=== PATIENT | male | born 1980 | race Asian ===

== ENCOUNTER 2020-05-14 12:49 | Emergency (ER) | payer OTHER, SELFPAY ==
[~2020-05-14] VITALS: Ht 167.6 cm; Wt 90.7 kg
[2020-05-14 13:00] VITALS: BP_SYST 146
--- NOTE | 2020-05-14 13:15 | NUR ---
Pt triaged and placed in tent
--- NOTE | 2020-05-14 13:20 | NUR ---
Pt walked in to ER with c/o SOB and cough, reports testing positive for Covid and having increasing SOB. V/S stable, 02 sat 98% on RA. Pt is afebrile. No distress noted.
--- NOTE | 2020-05-14 13:30 | NUR ---
DR. VARMA EXAMINING PT IN TENT
--- NOTE | 2020-05-14 13:40 | NUR ---
Patient transported to radiology via wheelchair, accompanied by staff.
[2020-05-14 14:31] VITALS: BP_SYST 146
--- NOTE | 2020-05-14 14:33 | NUR ---
Patient given written and verbal discharge instructions and verbalizes understanding. ER MD discussed with patient the results and treatment provided. Patient in stable condition. ID arm band removed. Rx of Zithromax, Albuterol and Hydroxychloroquine given. Patient educated on pain management and to follow up with PMD. Pain Scale 0. Opportunity for questions provided and answered. Medication side effect fact sheet provided.
== END 2020-05-14 14:31 | disposition home or self-care (01) ==
LOC: SED 12:49
DX: U07.1 COVID-19 (principal); I10 Essential (primary) hypertension; E11.9 Type 2 diabetes mellitus without complications
CPT/HCPCS: 71045; 99283

== ENCOUNTER 2020-05-31 08:46 | Outpatient (CLI) | payer OTHER, SELFPAY ==
[2020-05-31 09:13] LABS: BASOPHILS % (AUTO) 0.7 % (0.0-2.0); EOSINOPHILS # (AUTO) 0.2 K/uL (0.0-0.4); EOSINOPHILS % (AUTO) 3.2 % (0.0-4.0); HEMATOCRIT 44.2 % (36-54); HEMOGLOBIN 15.2 g/dL (14.0-18.0); LYMPHOCYTES % (AUTO) 42.1 % (20.5-51.5); MEAN CORPUSCULAR HEMOGLOBIN 30 pg (27-31); MEAN CORPUSCULAR HGB CONC 34 % (32-36); MEAN CORPUSCULAR VOLUME 87 fL (79.0-98.0); MONOCYTES # (AUTO) 0.5 K/uL (0.0-1.0); NEUTROPHILS # (AUTO) 2.1 K/uL (1.8-7.7); PLATELET COUNT (AUTO) 282 K/uL (130-430); RED BLOOD CELL COUNT(AUTO) 5.06 MIL/uL (4.2-6.2); RED CELL DISTRIBUTION WIDTH 12.9 % (9.0-15.0); WHITE BLOOD COUNT (AUTO) 4.8 K/uL (4.8-10.8)
[2020-05-31 09:34] LABS: ALBUMIN 3.2 g/dL (3.4-4.8); CALCIUM 8.7 mg/dL (8.4-11.0); CREATININE 0.83 mg/dL (0.55-1.30); FREE T4 (FREE THYROXINE) 1.1 ng/dl (0.8-1.5); POTASSIUM 3.9 mmol/L (3.5-5.1); THYROID STIMULATING HORMONE 2.66 uIu/mL (0.36-3.74); TOTAL BILIRUBIN 0.5 mg/dL (0.0-1.0)
[2020-05-31 09:39] LABS: BILIRUBIN,URINE NEGATIVE (NEGATIVE); BLOOD, URINE NEGATIVE (NEGATIVE); CLARITY/URINE CLEAR (CLEAR); COLOR,URINE YELLOW (YELLOW); GLUCOSE,URINE 2+ (NEGATIVE); KETONES,URINE NEGATIVE (NEGATIVE); LEUKOCYTE ESTERASE ,URINE NEGATIVE (NEGATIVE); NITRITE, URINE POSITIVE (NEGATIVE); PROTEIN URINE NEGATIVE (NEGATIVE); UROBILINOGEN,URINE 0.2 (0.2-1.0)
[2020-05-31 10:02] LABS: BACTERIA,URINE RARE /HPF (None Seen); RBC,URINE 0-3 /HPF (0-3); WBC,URINE NONE SEEN /HPF (0-3)
== END 2020-05-31 21:02 | disposition home or self-care (01) ==
LOC: SLB 08:46
PROVIDERS: ATTEND Family Medicine
DX: Z00.00 Encounter for general adult medical examination without abnormal findings (principal)
CPT/HCPCS: 36415; 80053; 80061; 81000-TC; 83036; 84439; 84443-TC; 85025

== ENCOUNTER 2020-08-18 10:13 | Outpatient (CLI) | payer OTHER ==
[2020-08-18 11:02] LABS: ALBUMIN 3.6 g/dL (3.4-4.8); BILIRUBIN,DIRECT 0.1 mg/dL (0.0-0.3); TOTAL BILIRUBIN 0.4 mg/dL (0.0-1.0)
== END 2020-08-18 20:50 | disposition home or self-care (01) ==
LOC: SLB 10:13
PROVIDERS: ATTEND Family Medicine
DX: E78.00 Pure hypercholesterolemia, unspecified (principal)
CPT/HCPCS: 36415; 80061; 80076

== ENCOUNTER 2020-11-25 08:22 | Outpatient (CLI) | payer OTHER ==
[2020-11-25 08:40] LABS: BILIRUBIN,URINE NEGATIVE (NEGATIVE); BLOOD, URINE NEGATIVE (NEGATIVE); CLARITY/URINE CLEAR (CLEAR); COLOR,URINE YELLOW (YELLOW); GLUCOSE,URINE 3+ (NEGATIVE); KETONES,URINE NEGATIVE (NEGATIVE); LEUKOCYTE ESTERASE ,URINE NEGATIVE (NEGATIVE); NITRITE, URINE NEGATIVE (NEGATIVE); PROTEIN URINE NEGATIVE (NEGATIVE); UROBILINOGEN,URINE 0.2 (0.2-1.0)
[2020-11-25 09:15] LABS: ALBUMIN 3.4 g/dL (3.4-4.8); CALCIUM 8.7 mg/dL (8.4-11.0); CREATININE 1.06 mg/dL (0.55-1.30); POTASSIUM 4.7 mmol/L (3.5-5.1); TOTAL BILIRUBIN 0.6 mg/dL (0.0-1.0)
[2020-11-25 10:28] LABS: BACTERIA,URINE RARE /HPF (None Seen); RBC,URINE NONE SEEN /HPF (0-3); WBC,URINE 0-3 /HPF (0-3)
== END 2020-11-25 21:00 | disposition home or self-care (01) ==
LOC: SLB 08:22
PROVIDERS: ATTEND Family Medicine
DX: E11.9 Type 2 diabetes mellitus without complications (principal)
CPT/HCPCS: 36415; 80053; 80061; 81000; 82043; 82570; 83036

== ENCOUNTER 2020-12-27 10:22 | Outpatient (CLI) | payer OTHER ==
[2020-12-27 11:29] LABS: CHOLESTEROL 131 mg/dL (<200); HDL CHOLESTEROL 43 mg/dL (>45); LDL CHOLESTEROL 70 mg/dL (<100); TRIGLYCERIDES 216 mg/dL (30-150)
== END 2020-12-27 21:10 | disposition home or self-care (01) ==
LOC: SLB 10:22
PROVIDERS: ATTEND Family Medicine
DX: E78.00 Pure hypercholesterolemia, unspecified (principal)
CPT/HCPCS: 36415; 80061

== ENCOUNTER 2021-03-28 08:53 | Outpatient (CLI) | payer OTHER ==
[2021-03-28 09:30] LABS: BASOPHILS % (AUTO) 0.3 % (0.0-2.0); EOSINOPHILS # (AUTO) 0.1 K/uL (0.0-0.4); EOSINOPHILS % (AUTO) 0.5 % (0.0-4.0); HEMATOCRIT 46.4 % (36-54); HEMOGLOBIN 15.3 g/dL (14.0-18.0); LYMPHOCYTES # (AUTO) 1.8 K/uL (1.0-5.5); LYMPHOCYTES % (AUTO) 14.2 % (20.5-51.5); MEAN CORPUSCULAR HEMOGLOBIN 29 pg (27-31); MEAN CORPUSCULAR HGB CONC 33 % (32-36); MEAN CORPUSCULAR VOLUME 88 fL (79.0-98.0); MONOCYTES # (AUTO) 1.7 K/uL (0.0-1.0); MONOCYTES % (AUTO) 13.6 % (1.7-9.3); NEUTROPHILS % (AUTO) 71.4 % (40.0-70.0); PLATELET COUNT (AUTO) 354 K/uL (130-430); RED BLOOD CELL COUNT(AUTO) 5.28 MIL/uL (4.2-6.2); RED CELL DISTRIBUTION WIDTH 12.9 % (9.0-15.0); WHITE BLOOD COUNT (AUTO) 12.6 K/uL (4.8-10.8)
[2021-03-28 09:39] LABS: HDL CHOLESTEROL 52 mg/dL (>45); LDL CHOLESTEROL 59 mg/dL (<100); TRIGLYCERIDES 113 mg/dL (30-150)
[2021-03-28 10:08] LABS: CHOLESTEROL 126 mg/dL (<200)
[2021-03-28 10:16] LABS: BILIRUBIN,URINE 1+ (NEGATIVE); BLOOD, URINE 1+ (NEGATIVE); CLARITY/URINE CLEAR (CLEAR); COLOR,URINE YELLOW (YELLOW); GLUCOSE,URINE 2+ (NEGATIVE); KETONES,URINE 3+ (NEGATIVE); LEUKOCYTE ESTERASE ,URINE NEGATIVE (NEGATIVE); NITRITE, URINE NEGATIVE (NEGATIVE); PH,URINE 5.5 (5.0-8.0); PROTEIN URINE 1+ (NEGATIVE); UROBILINOGEN,URINE 0.2 (0.2-1.0)
[2021-03-28 13:48] LABS: BACTERIA,URINE FEW /HPF (None Seen); RBC,URINE 0-3 /HPF (0-3); WBC,URINE 0-3 /HPF (0-3)
== END 2021-03-28 20:00 | disposition home or self-care (01) ==
LOC: SLB 08:53
PROVIDERS: ATTEND Family Medicine
DX: E11.9 Type 2 diabetes mellitus without complications (principal)
CPT/HCPCS: 36415; 80061; 81000; 82043; 82570; 83036; 85025

== ENCOUNTER 2021-05-01 07:09 | Outpatient (CLI) | payer OTHER | END 2021-05-01 20:16 | disposition home or self-care (01) | LOC: SLB 07:09 | PROVIDERS: ATTEND Family Medicine | DX: E11.9 Type 2 diabetes mellitus without complications (principal) | CPT/HCPCS: 36415; 83036 ==

== ENCOUNTER 2021-06-28 10:21 | Outpatient (CLI) | payer OTHER ==
[2021-06-28 11:53] LABS: ALBUMIN 3.7 g/dL (3.4-4.8); CALCIUM 8.2 mg/dL (8.4-11.0); CREATININE 0.84 mg/dL (0.55-1.30); POTASSIUM 4.5 mmol/L (3.5-5.1); TOTAL BILIRUBIN 0.5 mg/dL (0.0-1.0)
[2021-06-28 12:00] LABS: BILIRUBIN,URINE NEGATIVE (NEGATIVE); BLOOD, URINE NEGATIVE (NEGATIVE); CLARITY/URINE CLEAR (CLEAR); COLOR,URINE YELLOW (YELLOW); GLUCOSE,URINE 3+ (NEGATIVE); KETONES,URINE NEGATIVE (NEGATIVE); LEUKOCYTE ESTERASE ,URINE NEGATIVE (NEGATIVE); NITRITE, URINE NEGATIVE (NEGATIVE); PROTEIN URINE NEGATIVE (NEGATIVE); UROBILINOGEN,URINE 0.2 (0.2-1.0)
[2021-06-28 12:21] LABS: BACTERIA,URINE RARE /HPF (None Seen); RBC,URINE NONE SEEN /HPF (0-3); WBC,URINE 0-3 /HPF (0-3)
== END 2021-06-28 19:14 | disposition home or self-care (01) ==
LOC: SLB 10:21
PROVIDERS: ATTEND Family Medicine
DX: E11.9 Type 2 diabetes mellitus without complications (principal)
CPT/HCPCS: 36415; 80053; 80061; 81000; 82043; 82570; 83036

== ENCOUNTER 2021-08-08 09:39 | Outpatient (CLI) | payer OTHER | END 2021-08-08 18:54 | disposition home or self-care (01) | LOC: SRD 09:39 | PROVIDERS: ATTEND Family Medicine | DX: S93.402A Sprain of unspecified ligament of left ankle, initial encounter (principal); M81.0 Age-related osteoporosis without current pathological fracture; M77.32 Calcaneal spur, left foot; I70.90 Unspecified atherosclerosis; X58.XXXA Exposure to other specified factors, initial encounter; Y93.89 Activity, other specified; Y92.89 Other specified places as the place of occurrence of the external cause; Y99.8 Other external cause status ==

== ENCOUNTER 2021-10-31 10:30 | Outpatient (CLI) | payer OTHER ==
[2021-10-31 11:11] LABS: ALBUMIN 3.6 g/dL (3.4-4.8); CALCIUM 8.6 mg/dL (8.4-11.0); CREATININE 0.99 mg/dL (0.55-1.30); POTASSIUM 4.4 mmol/L (3.5-5.1); TOTAL BILIRUBIN 0.6 mg/dL (0.0-1.0)
[2021-10-31 11:47] LABS: BILIRUBIN,URINE NEGATIVE (NEGATIVE); BLOOD, URINE NEGATIVE (NEGATIVE); CLARITY/URINE CLEAR (CLEAR); COLOR,URINE YELLOW (YELLOW); GLUCOSE,URINE 3+ (NEGATIVE); KETONES,URINE NEGATIVE (NEGATIVE); LEUKOCYTE ESTERASE ,URINE NEGATIVE (NEGATIVE); NITRITE, URINE NEGATIVE (NEGATIVE); PROTEIN URINE NEGATIVE (NEGATIVE); UROBILINOGEN,URINE 0.2 (0.2-1.0)
== END 2021-10-31 20:37 | disposition home or self-care (01) ==
LOC: SLB 10:30
PROVIDERS: ATTEND Family Medicine
DX: E11.9 Type 2 diabetes mellitus without complications (principal)
CPT/HCPCS: 36415; 80053; 80061; 81003; 82043; 82570; 83036

== ENCOUNTER 2022-02-06 10:11 | Outpatient (CLI) | payer OTHER ==
[2022-02-06 11:08] LABS: BILIRUBIN,URINE NEGATIVE (NEGATIVE); CLARITY/URINE CLEAR (CLEAR); COLOR,URINE YELLOW (YELLOW); GLUCOSE,URINE 3+ (NEGATIVE); KETONES,URINE TRACE (NEGATIVE); LEUKOCYTE ESTERASE ,URINE NEGATIVE (NEGATIVE); NITRITE, URINE NEGATIVE (NEGATIVE); PROTEIN URINE NEGATIVE (NEGATIVE); UROBILINOGEN,URINE 0.2 (0.2-1.0)
[2022-02-06 11:12] LABS: BLOOD, URINE TRACE (NEGATIVE)
[2022-02-06 11:24] LABS: ALBUMIN 3.4 g/dL (3.4-4.8); CALCIUM 8.7 mg/dL (8.4-11.0); CREATININE 1.17 mg/dL (0.55-1.30); POTASSIUM 4.7 mmol/L (3.5-5.1); TOTAL BILIRUBIN 0.6 mg/dL (0.0-1.0)
[2022-02-06 11:37] LABS: BACTERIA,URINE None Seen /HPF (None Seen); RBC,URINE 0-3 /HPF (0-3); WBC,URINE 0-3 /HPF (0-3)
[2022-02-09 14:06] LABS: ALDOSTERONE 10.8 ng/dL (0.0-30.0)
[2022-02-12 09:07] LABS: HEMOGLOBIN A1C 10.6 % (4.8-5.6)
[2022-02-20 11:39] LABS: CREATININE, URINE 58.4 mg/dL
[2022-02-20 11:40] LABS: MICROALBUMIN URINE RANDOM 25.8 ug/ml (NOT ESTABLISHED)
== END 2022-02-06 19:21 | disposition home or self-care (01) ==
LOC: SRD 10:11
PROVIDERS: ATTEND Family Medicine
DX: M21.962 Unspecified acquired deformity of left lower leg (principal); M79.672 Pain in left foot; M25.572 Pain in left ankle and joints of left foot; E11.9 Type 2 diabetes mellitus without complications; I70.90 Unspecified atherosclerosis
CPT/HCPCS: 36415; 80053; 80061; 81000; 82043; 82088; 82306; 82570; 83036

== ENCOUNTER 2022-04-25 10:08 | Outpatient (CLI) | payer OTHER | END 2022-04-25 18:25 | disposition home or self-care (01) | LOC: SCT 10:08 | PROVIDERS: ATTEND Family Medicine | DX: M19.072 Primary osteoarthritis, left ankle and foot (principal); M72.2 Plantar fascial fibromatosis; M77.32 Calcaneal spur, left foot; E11.69 Type 2 diabetes mellitus with other specified complication; M31.8 Other specified necrotizing vasculopathies; M79.672 Pain in left foot; M21.6X2 Other acquired deformities of left foot | CPT/HCPCS: 73700-TC; 76376 ==

== ENCOUNTER 2023-03-03 20:29 | Inpatient (IN) | payer OTHER ==
[~2023-03-03] VITALS: Ht 170.2 cm; Wt 86.2 kg
[~2023-03-03 20:29] MED LIST: ATOR10TA68 PO; DILT-118 PO; DILT-33 PO; EMPA25TA PO; HYDR-3917 PO; ICOS1CAP2 PO; INSU100V9 SUBCUT; LOSA100T24 PO; METF-380 PO; METO-542 PO; SEMA0.258 SUBCUT; SULF1TAB48 PO
[2023-03-03 21:03] VITALS: BP_SYST 133; PULSE 82; RESP 18; TEMP 98.3; O2SAT 99
[2023-03-03] MEDS ORDERED: NAFCILLIN SODIUM ONE (21:34)
[2023-03-03] MEDS ORDERED: MAGNESIUM SULFATE 50 ML IV PRN (21:45)
[2023-03-03] MEDS ORDERED: DOCUSATE SODIUM 100 MG CAPSULE PO PRN (21:45)
[2023-03-03] MEDS ORDERED: MORPHINE 2 MG/ML INJ. SYRINGE IVP PRN ×2 (21:45)
[2023-03-03] MEDS ORDERED: MUPIROCIN 2% TOPICAL OINTMENT 22 GM NS PRN (21:45)
[2023-03-03] MEDS ORDERED: LORazepam 2 MG/ML VIAL IVP PRN (21:45)
[2023-03-03] MEDS ORDERED: D5NS 1,000 ML IV SCH (21:45)
[2023-03-03] MEDS ORDERED: DEXTROSE 50% JECT 50 ML DISP.SYRIN IVP PRN (21:45)
[2023-03-03] MEDS ORDERED: ACETAMINOPHEN 325 MG TABLET PO PRN (21:45)
[2023-03-03] MEDS ORDERED: ZOLPIDEM TARTRATE 5 MG TABLET PO PRN (21:45)
[2023-03-03] MEDS ORDERED: POTASSIUM CHLORIDE 20 MEQ TAB.PRT.SR PO PRN (21:45)
[2023-03-03] MEDS ORDERED: ONDANSETRON HCL 4 MG/2 ML VIAL IVP PRN (21:45)
[2023-03-03 21:55] LABS: BASOPHILS # (AUTO) 0.1 K/uL (0.0-0.2); BASOPHILS % (AUTO) 0.6 % (0.0-2.0); EOSINOPHILS # (AUTO) 0.3 K/uL (0.0-0.4); EOSINOPHILS % (AUTO) 3.3 % (0.0-4.0); HEMATOCRIT 36.2 % (36-54); HEMOGLOBIN 11.7 g/dL (14.0-18.0); LYMPHOCYTES # (AUTO) 2.8 K/uL (1.0-5.5); LYMPHOCYTES % (AUTO) 26.9 % (20.5-51.5); MEAN CORPUSCULAR HEMOGLOBIN 28 pg (27-31); MEAN CORPUSCULAR HGB CONC 32 % (32-36); MEAN CORPUSCULAR VOLUME 87 fL (79.0-98.0); MONOCYTES # (AUTO) 0.7 K/uL (0.0-1.0); NEUTROPHILS # (AUTO) 6.5 K/uL (1.8-7.7); NEUTROPHILS % (AUTO) 62.2 % (40.0-70.0); PLATELET COUNT (AUTO) 540 K/uL (130-430); RED BLOOD CELL COUNT(AUTO) 4.17 MIL/uL (4.2-6.2); RED CELL DISTRIBUTION WIDTH 14.9 % (9.0-15.0); WHITE BLOOD COUNT (AUTO) 10.4 K/uL (4.8-10.8)
[2023-03-03 21:58] LABS: ERYTHROCYTE SEDIMENTATION RATE 72 MM/HR (0-15)
[2023-03-03 22:05] LABS: CALCIUM 9.3 mg/dL (8.4-11.0); CREATININE 1.08 mg/dL (0.55-1.30); POTASSIUM 4.1 mmol/L (3.5-5.1)
[2023-03-03 22:08] LABS: PROTHROMBIN TIME 10.1 SECS (9.5-12.5)
[2023-03-03] MEDS: NAFCILLIN SODIUM 1 GM in NS 50 ML IV SCH (22:18)
[2023-03-03 22:40] LABS: ALBUMIN 2.6 g/dL (3.4-4.8); TOTAL BILIRUBIN 0.2 mg/dL (0.0-1.0); TOTAL PROTEIN, SERUM 8.2 g/dL (6.4-8.3)
[2023-03-03 23:15] VITALS: BP_SYST 124; PULSE 82; RESP 16; TEMP 98.2; O2SAT 96
[2023-03-04] MEDS ORDERED: PIPERACILLIN/TAZOBACTAM 3.375 GM/VIAL (ZOSYN) IV ONE (01:21)
[2023-03-04] MEDS ORDERED: NAFCILLIN SODIUM ONE (01:21)
[2023-03-04] MEDS: PIPERACILLIN/TAZO 3.375 GM in NS 50 ML IV SCH ×4 (01:30→17:31)
[2023-03-04 01:55] LABS: BILIRUBIN,URINE NEGATIVE (NEGATIVE); BLOOD, URINE NEGATIVE (NEGATIVE); CLARITY/URINE CLEAR (CLEAR); COLOR,URINE YELLOW (YELLOW); GLUCOSE,URINE 3+ (NEGATIVE); KETONES,URINE NEGATIVE (NEGATIVE); LEUKOCYTE ESTERASE ,URINE NEGATIVE (NEGATIVE); NITRITE, URINE NEGATIVE (NEGATIVE); PH,URINE 6.5 (5.0-8.0); PROTEIN URINE NEGATIVE (NEGATIVE); UROBILINOGEN,URINE 0.2 (0.2-1.0)
[2023-03-04 05:04] LABS: EOSINOPHILS # (AUTO) 0.3 K/uL (0.0-0.4); EOSINOPHILS % (AUTO) 3.3 % (0.0-4.0); HEMATOCRIT 33.7 % (36-54); LYMPHOCYTES # (AUTO) 2.2 K/uL (1.0-5.5); LYMPHOCYTES % (AUTO) 26.3 % (20.5-51.5); MEAN CORPUSCULAR HEMOGLOBIN 28 pg (27-31); MEAN CORPUSCULAR HGB CONC 33 % (32-36); MEAN CORPUSCULAR VOLUME 87 fL (79.0-98.0); MONOCYTES # (AUTO) 0.5 K/uL (0.0-1.0); MONOCYTES % (AUTO) 5.6 % (1.7-9.3); NEUTROPHILS # (AUTO) 5.4 K/uL (1.8-7.7); NEUTROPHILS % (AUTO) 64.8 % (40.0-70.0); PLATELET COUNT (AUTO) 481 K/uL (130-430); RED BLOOD CELL COUNT(AUTO) 3.88 MIL/uL (4.2-6.2); RED CELL DISTRIBUTION WIDTH 14.9 % (9.0-15.0); WHITE BLOOD COUNT (AUTO) 8.4 K/uL (4.8-10.8)
[2023-03-04] MEDS: NAFCILLIN SODIUM 1 GM in NS 50 ML IV SCH ×3 (05:19)
[2023-03-04 05:33] LABS: CALCIUM 8.9 mg/dL (8.4-11.0); CREATININE 0.9 mg/dL (0.55-1.30); POTASSIUM 3.9 mmol/L (3.5-5.1)
[2023-03-04 08:00] VITALS: BP_SYST 135; PULSE 72; RESP 18; TEMP 97.9; O2SAT 96
[2023-03-04] MEDS: LOSARTAN POTASSIUM 50 MG TABLET (COZAAR) PO SCH (09:00)
[2023-03-04] MEDS: ATORVASTATIN 10 MG TABLET PO SCH (09:00)
[2023-03-04] MEDS ORDERED: fentaNYL CITRATE/PF 100 MCG/2 ML AMP ONE (09:55)
[2023-03-04] MEDS ORDERED: SEVOFLURANE 15 MIN GAS INH ONE (09:55)
[2023-03-04] MEDS ORDERED: PROPOFOL 200MG/ 20ML VIAL (DIPRIVAN) IV ONE (09:55)
[2023-03-04] MEDS ORDERED: MIDAZOLAM HCL/PF 2 MG/2 ML SYRINGE ONE (09:55)
[2023-03-04] MEDS ORDERED: ONDANSETRON HCL 4 MG/2 ML VIAL ONE (09:55)
[2023-03-04] MEDS ORDERED: KETOROLAC TROMETHAMINE 30 MG VIAL ONE (09:55)
[2023-03-04] MEDS ORDERED: DEXAMETHASONE SOD PHOSPHATE 4 MG/ML VIAL ONE (09:55)
[2023-03-04] MEDS ORDERED: BUPIVACAINE /PF 0.25% 30 ML VIAL INJ ONE (09:55)
[2023-03-04] MEDS ORDERED: LIDOCAINE JECT 2% PF 100 MG/5ML SYRINGE ONE (09:55)
[2023-03-04] MEDS ORDERED: LR 1,000 ML IV.SOLN IV ONE (09:55)
[2023-03-04] MEDS ORDERED: HYDROmorphone 1 MG/ML INJ. CARTRIDGE IVP PRN ×2 (10:30)
[2023-03-04] MEDS ORDERED: MEPERIDINE HCL/PF 25 MG/ML DISP.SYRIN IVP PRN (10:30)
[2023-03-04] MEDS ORDERED: LR 1,000 ML IV SCH (10:30)
[2023-03-04] MEDS ORDERED: METOCLOPRAMIDE HCL 10 MG/2 ML VIAL IVP PRN (10:30)
[2023-03-04 10:36] VITALS: BP_SYST 124; PULSE 82; O2SAT 99
[2023-03-04] MEDS: INSULIN LISPRO SLIDING SCALE 100 UNITS/ML, 3 ML VIAL (humaLOG) SUBCUT PRN ×2 (17:28→20:32)
[2023-03-04 18:10] VITALS: BP_SYST 129; PULSE 98; RESP 17; TEMP 98.5; O2SAT 97
[2023-03-04 20:00] VITALS: BP_SYST 133; PULSE 111; RESP 20; TEMP 97.9; O2SAT 95
[2023-03-04] MEDS: LINEZOLID 300 ML IV SCH (20:28)
[2023-03-05 00:53] VITALS: BP_SYST 143; PULSE 104; RESP 18; TEMP 96.4; O2SAT 97
[2023-03-05] MEDS: PIPERACILLIN/TAZO 3.375 GM in NS 50 ML IV SCH ×3 (02:16→18:09)
[2023-03-05 04:54] LABS: BASOPHILS % (AUTO) 0.3 % (0.0-2.0); HEMOGLOBIN 10.8 g/dL (14.0-18.0); LYMPHOCYTES # (AUTO) 1.2 K/uL (1.0-5.5); LYMPHOCYTES % (AUTO) 13.4 % (20.5-51.5); MEAN CORPUSCULAR HEMOGLOBIN 28 pg (27-31); MEAN CORPUSCULAR HGB CONC 33 % (32-36); MEAN CORPUSCULAR VOLUME 86 fL (79.0-98.0); MONOCYTES # (AUTO) 0.4 K/uL (0.0-1.0); MONOCYTES % (AUTO) 4.8 % (1.7-9.3); NEUTROPHILS # (AUTO) 7.3 K/uL (1.8-7.7); NEUTROPHILS % (AUTO) 81.5 % (40.0-70.0); PLATELET COUNT (AUTO) 546 K/uL (130-430); RED BLOOD CELL COUNT(AUTO) 3.84 MIL/uL (4.2-6.2); RED CELL DISTRIBUTION WIDTH 15.1 % (9.0-15.0)
[2023-03-05 05:13] LABS: CALCIUM 8.9 mg/dL (8.4-11.0); CREATININE 0.88 mg/dL (0.55-1.30)
[2023-03-05 08:04] VITALS: BP_SYST 137; PULSE 106; RESP 16; TEMP 98.2; O2SAT 100
[2023-03-05] MEDS: LINEZOLID 300 ML IV SCH ×2 (08:19→21:57)
[2023-03-05] MEDS: ATORVASTATIN 10 MG TABLET PO SCH (08:20)
[2023-03-05] MEDS: LOSARTAN POTASSIUM 50 MG TABLET (COZAAR) PO SCH (08:20)
[2023-03-05 10:00] VITALS: O2SAT 100
[2023-03-05] MEDS: NACL 0.9% 1,000 ML IV SCH ×2 (10:30→21:56)
[2023-03-05 11:29] VITALS: BP_SYST 145; PULSE 98; RESP 16; TEMP 96.2; O2SAT 97
[2023-03-05 15:25] VITALS: BP_SYST 163; PULSE 93; RESP 16; TEMP 97; O2SAT 99
[2023-03-05] MEDS ORDERED: HYDROCHLOROTHIAZIDE 25 MG TABLET (HCTZ) PO ONE (15:45)
[2023-03-05 20:00] VITALS: BP_SYST 163; PULSE 100; RESP 16; TEMP 97.8; O2SAT 98
[2023-03-05] MEDS ORDERED: cloNIDine HCL 0.2 MG TABLET PO PRN (21:45)
[2023-03-05] MEDS: INSULIN LISPRO SLIDING SCALE 100 UNITS/ML, 3 ML VIAL (humaLOG) SUBCUT PRN (22:01)
[2023-03-06 00:46] VITALS: BP_SYST 148; PULSE 91; RESP 17; TEMP 96.6; O2SAT 98
[2023-03-06] MEDS: PIPERACILLIN/TAZO 3.375 GM in NS 50 ML IV SCH ×3 (02:09→18:47)
[2023-03-06 05:39] LABS: BASOPHILS % (AUTO) 0.5 % (0.0-2.0); EOSINOPHILS # (AUTO) 0.2 K/uL (0.0-0.4); EOSINOPHILS % (AUTO) 1.7 % (0.0-4.0); HEMATOCRIT 33.2 % (36-54); HEMOGLOBIN 10.7 g/dL (14.0-18.0); LYMPHOCYTES # (AUTO) 2.6 K/uL (1.0-5.5); LYMPHOCYTES % (AUTO) 26.8 % (20.5-51.5); MEAN CORPUSCULAR HEMOGLOBIN 28 pg (27-31); MEAN CORPUSCULAR HGB CONC 32 % (32-36); MEAN CORPUSCULAR VOLUME 87 fL (79.0-98.0); MONOCYTES # (AUTO) 0.9 K/uL (0.0-1.0); MONOCYTES % (AUTO) 8.9 % (1.7-9.3); NEUTROPHILS # (AUTO) 5.9 K/uL (1.8-7.7); NEUTROPHILS % (AUTO) 62.1 % (40.0-70.0); PLATELET COUNT (AUTO) 595 K/uL (130-430); RED BLOOD CELL COUNT(AUTO) 3.81 MIL/uL (4.2-6.2); RED CELL DISTRIBUTION WIDTH 14.9 % (9.0-15.0); WHITE BLOOD COUNT (AUTO) 9.5 K/uL (4.8-10.8)
[2023-03-06 05:57] LABS: CREATININE 0.85 mg/dL (0.55-1.30); POTASSIUM 4.3 mmol/L (3.5-5.1)
[2023-03-06 06:16] LABS: PROTHROMBIN TIME 10.4 SECS (9.5-12.5)
[2023-03-06 07:00] VITALS: BP_SYST 148; PULSE 101; RESP 16; TEMP 98.3; O2SAT 99
[2023-03-06 09:00] VITALS: BP_SYST 148; PULSE 101; RESP 16; TEMP 98.3; O2SAT 98
[2023-03-06] MEDS: ATORVASTATIN 10 MG TABLET PO SCH (09:04)
[2023-03-06] MEDS: HYDROCHLOROTHIAZIDE 25 MG TABLET (HCTZ) PO SCH (09:05)
[2023-03-06] MEDS: LOSARTAN POTASSIUM 50 MG TABLET (COZAAR) PO SCH (09:05)
[2023-03-06] MEDS: NACL 0.9% 1,000 ML IV SCH ×2 (09:12→22:00)
[2023-03-06] MEDS: LINEZOLID 300 ML IV SCH ×2 (09:29→22:17)
[2023-03-06 11:20] VITALS: BP_SYST 134; PULSE 104; RESP 15; TEMP 96.3; O2SAT 98
[2023-03-06 20:00] VITALS: BP_SYST 106; PULSE 100; RESP 18; TEMP 97.1; O2SAT 96
[2023-03-06 21:45] VITALS: O2SAT 100
[2023-03-07 00:38] VITALS: BP_SYST 146; PULSE 89; RESP 18; TEMP 97.2; O2SAT 98
[2023-03-07] MEDS: PIPERACILLIN/TAZO 3.375 GM in NS 50 ML IV SCH ×2 (01:27→11:16)
[2023-03-07 06:03] LABS: BASOPHILS # (AUTO) 0.1 K/uL (0.0-0.2); BASOPHILS % (AUTO) 0.7 % (0.0-2.0); EOSINOPHILS # (AUTO) 0.2 K/uL (0.0-0.4); EOSINOPHILS % (AUTO) 1.8 % (0.0-4.0); HEMATOCRIT 32.6 % (36-54); HEMOGLOBIN 10.6 g/dL (14.0-18.0); LYMPHOCYTES # (AUTO) 2.1 K/uL (1.0-5.5); LYMPHOCYTES % (AUTO) 24.3 % (20.5-51.5); MEAN CORPUSCULAR HEMOGLOBIN 28 pg (27-31); MEAN CORPUSCULAR HGB CONC 32 % (32-36); MEAN CORPUSCULAR VOLUME 87 fL (79.0-98.0); MONOCYTES # (AUTO) 0.9 K/uL (0.0-1.0); MONOCYTES % (AUTO) 10.7 % (1.7-9.3); NEUTROPHILS # (AUTO) 5.4 K/uL (1.8-7.7); NEUTROPHILS % (AUTO) 62.5 % (40.0-70.0); PLATELET COUNT (AUTO) 562 K/uL (130-430); RED BLOOD CELL COUNT(AUTO) 3.75 MIL/uL (4.2-6.2); RED CELL DISTRIBUTION WIDTH 14.7 % (9.0-15.0); WHITE BLOOD COUNT (AUTO) 8.7 K/uL (4.8-10.8)
[2023-03-07 06:33] LABS: CREATININE 0.91 mg/dL (0.55-1.30)
[2023-03-07 07:00] VITALS: BP_SYST 151; PULSE 100; RESP 16; TEMP 98.4; O2SAT 98
[2023-03-07 09:00] VITALS: BP_SYST 151; PULSE 100; RESP 16; TEMP 98.4; O2SAT 98
[2023-03-07] MEDS: LINEZOLID 300 ML IV SCH (09:14)
[2023-03-07] MEDS: LOSARTAN POTASSIUM 50 MG TABLET (COZAAR) PO SCH (09:24)
[2023-03-07] MEDS: HYDROCHLOROTHIAZIDE 25 MG TABLET (HCTZ) PO SCH (09:25)
[2023-03-07] MEDS: ATORVASTATIN 10 MG TABLET PO SCH (09:25)
[2023-03-07] MEDS ORDERED: HEPARIN IV FLUSH 300 UNITS/3ML SYR INJ ONE (10:15)
[2023-03-07] MEDS: NACL 0.9% 1,000 ML IV SCH (11:42)
[2023-03-07 11:50] VITALS: BP_SYST 118; PULSE 95; RESP 18; TEMP 97.5; O2SAT 99
[2023-03-07] MEDS ORDERED: COMMUNICATION ORDER XX ONE (15:45)
[2023-03-07 16:00] VITALS: BP_SYST 120; PULSE 90; RESP 20; TEMP 97; O2SAT 100
[2023-03-07] MEDS ORDERED: DAPTOmycin 500 MG in NS 50 ML IV SCH ×2 (18:00→21:00)
[2023-03-07] MEDS: INSULIN LISPRO SLIDING SCALE 100 UNITS/ML, 3 ML VIAL (humaLOG) SUBCUT PRN (20:58)
[2023-03-07 21:02] VITALS: BP_SYST 138; PULSE 98; RESP 18; TEMP 97.1; O2SAT 99
== END 2023-03-07 21:45 | disposition home health service (06) | DRG 475 ==
LOC: SED 20:29 → SMU 21:47
PROVIDERS: ADMIT General Practice; ATTEND General Practice
PROC: 0Y6H0Z1 Detachment at Right Lower Leg, High, Open Approach (ICD-10-PCS; principal; 2023-03-04 10:00)
DX: T87.43 Infection of amputation stump, right lower extremity (principal); E44.0 Moderate protein-calorie malnutrition; E87.1 Hypo-osmolality and hyponatremia; L03.115 Cellulitis of right lower limb; I10 Essential (primary) hypertension; E78.5 Hyperlipidemia, unspecified; Y83.5 Amputation of limb(s) as the cause of abnormal reaction of the patient, or of later complication, without mention of misadventure at the time of the procedure; Y92.89 Other specified places as the place of occurrence of the external cause; Z68.29 Body mass index [BMI] 29.0-29.9, adult
CPT/HCPCS: 36415; 71045; 73590-TC; 80048; 80053; 81001; 81003; 82962; 83037; 83605; 83735; 85025; 85610-TC; 85651-TC; 85730-TC; 87040; 87070-TC; 87075-TC; 87081; 87186-TC; 93005; 97110-GP; 97116-GP; 97530-GP; 99285; J0878; J1100; J1642; J1885; J2020; J2060; J2405; J2543; J2704; J3010; J3465; J3490; J7120

== ENCOUNTER 2023-03-12 19:39 | Inpatient (IN) | payer OTHER ==
[~2023-03-12] VITALS: Ht 170.2 cm; Wt 86.2 kg
[~2023-03-12 19:39] MED LIST changes: -SULF1TAB48 PO
[2023-03-12 20:01] VITALS: BP_SYST 135; PULSE 83; RESP 16; TEMP 97.9; O2SAT 98
[2023-03-12] MEDS ORDERED: HEPARIN IV FLUSH 300 UNITS/3ML SYR INJ ONE (20:30)
[2023-03-12 21:45] LABS: BASOPHILS # (AUTO) 0.1 K/uL (0.0-0.2); BASOPHILS % (AUTO) 0.7 % (0.0-2.0); EOSINOPHILS # (AUTO) 0.4 K/uL (0.0-0.4); EOSINOPHILS % (AUTO) 3.9 % (0.0-4.0); HEMATOCRIT 33.6 % (36-54); LYMPHOCYTES % (AUTO) 30.6 % (20.5-51.5); MEAN CORPUSCULAR HEMOGLOBIN 28 pg (27-31); MEAN CORPUSCULAR HGB CONC 33 % (32-36); MEAN CORPUSCULAR VOLUME 87 fL (79.0-98.0); MONOCYTES # (AUTO) 0.8 K/uL (0.0-1.0); NEUTROPHILS # (AUTO) 5.6 K/uL (1.8-7.7); NEUTROPHILS % (AUTO) 56.8 % (40.0-70.0); PLATELET COUNT (AUTO) 642 K/uL (130-430); RED BLOOD CELL COUNT(AUTO) 3.87 MIL/uL (4.2-6.2); RED CELL DISTRIBUTION WIDTH 15.8 % (9.0-15.0); WHITE BLOOD COUNT (AUTO) 9.9 K/uL (4.8-10.8)
[2023-03-12] MEDS ORDERED: ONDANSETRON HCL 4 MG/2 ML VIAL IVP PRN (21:45)
[2023-03-12] MEDS ORDERED: POTASSIUM CHLORIDE 20 MEQ TAB.PRT.SR PO PRN (21:45)
[2023-03-12] MEDS ORDERED: MUPIROCIN 2% TOPICAL OINTMENT 22 GM NS PRN (21:45)
[2023-03-12] MEDS ORDERED: LORazepam 2 MG/ML VIAL IVP PRN (21:45)
[2023-03-12] MEDS ORDERED: NALOXONE HCL 0.4 MG/ML AMP (NARCAN) IVP PRN ×2 (21:45)
[2023-03-12] MEDS ORDERED: MAGNESIUM SULFATE 50 ML IV PRN (21:45)
[2023-03-12] MEDS: NACL 0.9% 1,000 ML IV SCH (21:45)
[2023-03-12] MEDS ORDERED: ZOLPIDEM TARTRATE 5 MG TABLET PO PRN (21:45)
[2023-03-12] MEDS ORDERED: MORPHINE 2 MG/ML INJ. SYRINGE IVP PRN ×2 (21:45)
[2023-03-12] MEDS ORDERED: DOCUSATE SODIUM 100 MG CAPSULE PO PRN (21:45)
[2023-03-12] MEDS ORDERED: ACETAMINOPHEN 325 MG TABLET PO PRN (21:45)
[2023-03-12 21:56] LABS: CALCIUM 9.5 mg/dL (8.4-11.0); CREATININE 0.8 mg/dL (0.55-1.30); POTASSIUM 4.1 mmol/L (3.5-5.1); TOTAL BILIRUBIN 0.2 mg/dL (0.0-1.0); TOTAL PROTEIN, SERUM 7.8 g/dL (6.4-8.3)
[2023-03-12 23:11] VITALS: BP_SYST 124; PULSE 76; RESP 17; TEMP 97.8; O2SAT 99
[2023-03-13 00:43] VITALS: BP_SYST 111; PULSE 66; RESP 16; TEMP 97.4; O2SAT 96
[2023-03-13 04:22] LABS: BASOPHILS # (AUTO) 0.1 K/uL (0.0-0.2); EOSINOPHILS # (AUTO) 0.4 K/uL (0.0-0.4); EOSINOPHILS % (AUTO) 4.7 % (0.0-4.0); HEMATOCRIT 32.5 % (36-54); HEMOGLOBIN 10.6 g/dL (14.0-18.0); LYMPHOCYTES # (AUTO) 2.4 K/uL (1.0-5.5); LYMPHOCYTES % (AUTO) 32.1 % (20.5-51.5); MEAN CORPUSCULAR HEMOGLOBIN 28 pg (27-31); MEAN CORPUSCULAR HGB CONC 33 % (32-36); MEAN CORPUSCULAR VOLUME 87 fL (79.0-98.0); MONOCYTES # (AUTO) 0.8 K/uL (0.0-1.0); MONOCYTES % (AUTO) 9.9 % (1.7-9.3); NEUTROPHILS % (AUTO) 52.3 % (40.0-70.0); PLATELET COUNT (AUTO) 593 K/uL (130-430); RED BLOOD CELL COUNT(AUTO) 3.74 MIL/uL (4.2-6.2); WHITE BLOOD COUNT (AUTO) 7.6 K/uL (4.8-10.8)
[2023-03-13 04:26] LABS: HEMOGLOBIN A1C 6.06 % (<5.7)
[2023-03-13 04:35] LABS: CALCIUM 9.3 mg/dL (8.4-11.0); CREATININE 0.83 mg/dL (0.55-1.30); POTASSIUM 4.2 mmol/L (3.5-5.1)
[2023-03-13] MEDS ORDERED: DILTIAZEM HCL 180 MG CAP.SR.24H PO SCH (09:00)
[2023-03-13] MEDS ORDERED: COMMUNICATION ORDER XX ONE (09:00)
[2023-03-13] MEDS ORDERED: METOPROLOL SUCCINATE 50 MG TAB.SR.24H (TOPROL XL) PO SCH (09:00)
[2023-03-13] MEDS ORDERED: HEPARIN SODIUM,PORCINE 5,000 UNITS/ML VIAL SUBCUT SCH (09:00)
[2023-03-13] MEDS ORDERED: ATORVASTATIN 10 MG TABLET PO SCH (09:00)
[2023-03-13] MEDS ORDERED: LOSARTAN POTASSIUM 50 MG TABLET (COZAAR) PO SCH (09:00)
[2023-03-13] MEDS: NACL 0.9% 1,000 ML IV SCH (09:32)
[2023-03-13] MEDS ORDERED: DAPTOmycin 500 MG in NS 50 ML IV SCH (10:00)
[2023-03-13 11:27] VITALS: BP_SYST 144; PULSE 79; RESP 20; TEMP 98.1; O2SAT 99
[2023-03-13 15:28] VITALS: O2SAT 96
[2023-03-13 15:39] VITALS: BP_SYST 136; PULSE 86; RESP 20; TEMP 97.4; O2SAT 98
[2023-03-13 15:59] VITALS: BP_SYST 136; PULSE 86; RESP 20; TEMP 97.4; O2SAT 98
[2023-03-13] MEDS ORDERED: HEPARIN IV FLUSH 300 UNITS/3ML SYR INJ ONE (17:45)
[2023-03-13] MEDS ORDERED: INSULIN GLARGINE 100 UNITS/ML, 10 ML VIAL SUBCUT SCH (18:00)
== END 2023-03-13 17:45 | disposition home health service (06) | DRG 315 ==
LOC: SED 19:39 → SMU 21:19
PROVIDERS: ADMIT General Practice; ATTEND General Practice
DX: T80.211A Bloodstream infection due to central venous catheter, initial encounter (principal); T87.43 Infection of amputation stump, right lower extremity; I10 Essential (primary) hypertension; E11.9 Type 2 diabetes mellitus without complications; Y83.5 Amputation of limb(s) as the cause of abnormal reaction of the patient, or of later complication, without mention of misadventure at the time of the procedure; Y83.8 Other surgical procedures as the cause of abnormal reaction of the patient, or of later complication, without mention of misadventure at the time of the procedure; E78.5 Hyperlipidemia, unspecified; Z79.899 Other long term (current) drug therapy; Y92.89 Other specified places as the place of occurrence of the external cause
CPT/HCPCS: 36415; 80048; 80053; 83037; 83605; 83735; 85025; 87040; 87081; 99285; J0878; J1642; J1644

== ENCOUNTER 2023-07-25 07:15 | Outpatient (CLI) | payer OTHER | END 2023-07-25 21:03 | disposition home or self-care (01) | LOC: SMI 07:15 | PROVIDERS: ATTEND Orthopaedic Surgery Sports Medicine | DX: M17.11 Unilateral primary osteoarthritis, right knee (principal); M25.461 Effusion, right knee; M25.561 Pain in right knee; M89.8X6 Other specified disorders of bone, lower leg; M79.89 Other specified soft tissue disorders | CPT/HCPCS: 73720 ==

== ENCOUNTER 2024-01-28 08:11 | Inpatient (IN) | payer OTHER ==
[~2024-01-28] VITALS: Ht 170.2 cm; Wt 64.0 kg
[~2024-01-28 08:11] MED LIST changes: +METO-306 PO; -METO-542 PO
[2024-01-28 08:18] VITALS: BP_SYST 124; PULSE 94; RESP 26; TEMP 97; O2SAT 98
[2024-01-28 08:43] LABS: BASOPHILS % (AUTO) 0.4 % (0.0-2.0); EOSINOPHILS # (AUTO) 0.1 K/uL (0.0-0.4); EOSINOPHILS % (AUTO) 0.9 % (0.0-4.0); HEMATOCRIT 35.6 % (36-54); MEAN CORPUSCULAR HEMOGLOBIN 31 pg (27-31); MEAN CORPUSCULAR HGB CONC 34 % (32-36); MEAN CORPUSCULAR VOLUME 91 fL (79.0-98.0); MONOCYTES # (AUTO) 0.8 K/uL (0.0-1.0); MONOCYTES % (AUTO) 8.4 % (1.7-9.3); NEUTROPHILS # (AUTO) 6.6 K/uL (1.8-7.7); NEUTROPHILS % (AUTO) 69.3 % (40.0-70.0); PLATELET COUNT (AUTO) 476 K/uL (130-430); WHITE BLOOD COUNT (AUTO) 9.6 K/uL (4.8-10.8)
[2024-01-28 09:13] LABS: INFLUENZA TYPE A Negative (NEGATIVE); INFLUENZA TYPE B NEGATIVE (NEGATIVE)
[2024-01-28 09:15] LABS: ALANINE AMINOTRANSFERASE 24 U/L (12-78); ANION GAP 6 (5-15); ASPARTATE AMINOTRANSFERASE 12 U/L (10-37); CALCIUM 9.3 mg/dL (8.4-11.0); CARBON DIOXIDE 31 mmol/L (23-29); CHLORIDE 105 mmol/L (98-107); CREATININE 0.88 mg/dL (0.55-1.30); GFR AFRICAN AMERICAN 122 mL/min (>90); GFR NON AFRICAN-AMERICAN 100 mL/min (>90); GLUCOSE 169 mg/dL (74-106); POTASSIUM 4.8 mmol/L (3.5-5.1); SODIUM SERUM 142 mmol/L (136-145); TOTAL BILIRUBIN 0.3 mg/dL (0.0-1.0); TOTAL PROTEIN, SERUM 7.5 g/dL (6.4-8.3); UREA NITROGEN, BLOOD 18 mg/dL (8-21)
[2024-01-28 09:17] LABS: BILIRUBIN,DIRECT 0.1 mg/dL (0.0-0.3); SALICYLATE 1 mg/dL (3-30)
[2024-01-28 09:19] LABS: ACETAMINOPHEN < 1 ug/mL (1-30); ALCOHOL, BLOOD < 3 mg/dL (<10)
[2024-01-28 09:29] LABS: INR 0.9 (0.80-1.20); PROTHROMBIN TIME 10.2 SECS (9.5-12.5)
[2024-01-28] MEDS: NACL 0.9% 1,000 ML IV ONE (09:40)
[2024-01-28 12:25] LABS: BARBITURATE, URINE NEGATIVE (NEG <=200); BENZODIAZEPINE, URINE NEGATIVE (NEG <=150); CANNABINOID, URINE NEGATIVE (NEG <=50); COCAINE, URINE NEGATIVE (NEG <=150); METHAMPHETAMINES SCREEN,URINE NEGATIVE (NEG <=500); OPIATE, URINE NEGATIVE (NEG <=100); PHENCYCLIDINE SCREEN,URINE NEGATIVE (NEG <=25); UR TRICYCLIC ANTIDEPRESSANTS NEGATIVE (NEG <=300); URINE AMPHETAMINE NEGATIVE (NEG <=500); URINE METHADONE NEGATIVE (NEG <=200); URINE OXYCODONE SCREEN NEGATIVE (NEG <=100)
[2024-01-28 13:25] LABS: BILIRUBIN,URINE NEGATIVE (NEGATIVE); BLOOD, URINE NEGATIVE (NEGATIVE); CLARITY/URINE CLEAR (CLEAR); COLOR,URINE YELLOW (YELLOW); GLUCOSE,URINE 3+ (NEGATIVE); KETONES,URINE NEGATIVE (NEGATIVE); LEUKOCYTE ESTERASE ,URINE NEGATIVE (NEGATIVE); NITRITE, URINE NEGATIVE (NEGATIVE); PROTEIN URINE NEGATIVE (NEGATIVE); UROBILINOGEN,URINE 0.2 (0.2-1.0)
[2024-01-28 14:11] LABS: BACTERIA,URINE FEW /HPF (None Seen); RBC,URINE 0-3 /HPF (0-3); WBC,URINE 0-3 /HPF (0-3)
[2024-01-28 20:58] VITALS: BP_SYST 150; PULSE 79; RESP 18; TEMP 98
[2024-01-28 21:00] VITALS: BP_SYST 122; PULSE 88; RESP 18; TEMP 97.3; O2SAT 98
[2024-01-28] MEDS ORDERED: NALOXONE HCL 0.4 MG/ML AMP (NARCAN) IVP PRN ×2 (22:15)
[2024-01-28] MEDS ORDERED: ONDANSETRON HCL 4 MG/2 ML VIAL IVP PRN (22:15)
[2024-01-28] MEDS ORDERED: ACETAMINOPHEN 325 MG TABLET PO PRN (22:15)
[2024-01-28] MEDS ORDERED: LORazepam 2 MG/ML VIAL IVP PRN (22:15)
[2024-01-29] VITALS (7 sets, daily range): BP systolic 104–128; PULSE 67–88; RESP 14–18; TEMP 97.2–98.6; O2SAT 98–100
[2024-01-29] MEDS: NORMAL SALINE 5 ML DISP.SYRIN IVF SCH (06:30)
[2024-01-29 07:20] LABS: BASOPHILS % (AUTO) 0.5 % (0.0-2.0); EOSINOPHILS # (AUTO) 0.1 K/uL (0.0-0.4); EOSINOPHILS % (AUTO) 1.6 % (0.0-4.0); HEMATOCRIT 34.1 % (36-54); HEMOGLOBIN 11.4 g/dL (14.0-18.0); LYMPHOCYTES # (AUTO) 1.8 K/uL (1.0-5.5); LYMPHOCYTES % (AUTO) 19.6 % (20.5-51.5); MEAN CORPUSCULAR HEMOGLOBIN 30 pg (27-31); MEAN CORPUSCULAR HGB CONC 34 % (32-36); MEAN CORPUSCULAR VOLUME 90 fL (79.0-98.0); MONOCYTES # (AUTO) 0.7 K/uL (0.0-1.0); MONOCYTES % (AUTO) 8.1 % (1.7-9.3); NEUTROPHILS # (AUTO) 6.3 K/uL (1.8-7.7); NEUTROPHILS % (AUTO) 70.2 % (40.0-70.0); PLATELET COUNT (AUTO) 438 K/uL (130-430); RED BLOOD CELL COUNT(AUTO) 3.78 MIL/uL (4.2-6.2); RED CELL DISTRIBUTION WIDTH 12.8 % (9.0-15.0)
[2024-01-29 07:41] LABS: ALBUMIN 2.5 g/dL (3.4-4.8); CREATININE 0.79 mg/dL (0.55-1.30); PHOSPHORUS 3.7 mg/dL (2.7-4.5); POTASSIUM 4.7 mmol/L (3.5-5.1); TOTAL BILIRUBIN 0.4 mg/dL (0.0-1.0); TOTAL PROTEIN, SERUM 6.7 g/dL (6.4-8.3)
[2024-01-29] MEDS: METOPROLOL SUCCINATE 50 MG TAB.SR.24H (TOPROL XL) PO SCH (08:46)
[2024-01-29] MEDS: DILTIAZEM HCL 180 MG CAP.SR.24H PO SCH (08:47)
[2024-01-29] MEDS: EMPAGLIFLOZIN 10 MG TABLET PO SCH (08:49)
[2024-01-29] MEDS ORDERED: DILTIAZEM HCL 180 MG CAP.SR.24H PO SCH (09:00)
[2024-01-29] MEDS: OMEGA-3/DHA/EPA/FISH OIL 1 GM CAPSULE PO ONE (11:19)
[2024-01-29] MEDS: INSULIN GLARGINE 100 UNITS/ML, 10 ML VIAL SUBCUT SCH (18:20)
[2024-01-29] MEDS: ATORVASTATIN 10 MG TABLET PO SCH (21:59)
[2024-01-29] MEDS: LOSARTAN POTASSIUM 50 MG TABLET (COZAAR) PO SCH (22:00)
[2024-01-29] MEDS: OMEGA-3/DHA/EPA/FISH OIL 1 GM CAPSULE PO SCH (22:01)
[2024-01-30] VITALS: BP_SYST 102; PULSE 60; RESP 18; TEMP 97.7; O2SAT 100
[2024-01-30 07:15] LABS: CALCIUM 8.8 mg/dL (8.4-11.0); CREATININE 0.84 mg/dL (0.55-1.30); POTASSIUM 4.6 mmol/L (3.5-5.1)
[2024-01-30 07:20] LABS: BASOPHILS # (AUTO) 0.1 K/uL (0.0-0.2); BASOPHILS % (AUTO) 0.5 % (0.0-2.0); EOSINOPHILS # (AUTO) 0.1 K/uL (0.0-0.4); EOSINOPHILS % (AUTO) 1.5 % (0.0-4.0); HEMATOCRIT 33.4 % (36-54); HEMOGLOBIN 11.1 g/dL (14.0-18.0); LYMPHOCYTES # (AUTO) 2.3 K/uL (1.0-5.5); MEAN CORPUSCULAR HEMOGLOBIN 30 pg (27-31); MEAN CORPUSCULAR HGB CONC 33 % (32-36); MEAN CORPUSCULAR VOLUME 91 fL (79.0-98.0); MONOCYTES # (AUTO) 0.7 K/uL (0.0-1.0); MONOCYTES % (AUTO) 7.2 % (1.7-9.3); NEUTROPHILS # (AUTO) 6.3 K/uL (1.8-7.7); NEUTROPHILS % (AUTO) 66.8 % (40.0-70.0); PLATELET COUNT (AUTO) 437 K/uL (130-430); RED BLOOD CELL COUNT(AUTO) 3.67 MIL/uL (4.2-6.2); RED CELL DISTRIBUTION WIDTH 12.9 % (9.0-15.0); WHITE BLOOD COUNT (AUTO) 9.5 K/uL (4.8-10.8)
[2024-01-30 08:00] VITALS: BP_SYST 81; PULSE 71; RESP 14; TEMP 98.6
[2024-01-30] MEDS: NACL 0.9% 1,000 ML IV ONE (09:25)
[2024-01-30] MEDS ORDERED: ESCITALOPRAM OXALATE 10 MG TABLET PO SCH (11:00)
[2024-01-30] MEDS: CITALOPRAM HYDROBROMIDE 20 MG TABLET PO ONE (11:25)
[2024-01-30 11:31] VITALS: BP_SYST 119; PULSE 63; RESP 17; TEMP 96.7; O2SAT 99
[2024-01-30] MEDS: HYDROcodone/ACETAMIN 10-325 MG TAB PO PRN (14:35)
[2024-01-30 17:28] VITALS: BP_SYST 133; PULSE 61; RESP 17; TEMP 98.6; O2SAT 99
[2024-01-30 20:10] VITALS: BP_SYST 125; PULSE 66; RESP 18; TEMP 98.1; O2SAT 99
[2024-01-31] VITALS (7 sets, daily range): BP systolic 90–138; PULSE 60–72; RESP 16–18; TEMP 97.2–98.3; O2SAT 97–99
[2024-01-31 07:35] LABS: BASOPHILS % (AUTO) 0.5 % (0.0-2.0); EOSINOPHILS # (AUTO) 0.2 K/uL (0.0-0.4); EOSINOPHILS % (AUTO) 2.1 % (0.0-4.0); HEMATOCRIT 32.2 % (36-54); HEMOGLOBIN 10.6 g/dL (14.0-18.0); LYMPHOCYTES # (AUTO) 1.9 K/uL (1.0-5.5); LYMPHOCYTES % (AUTO) 20.8 % (20.5-51.5); MEAN CORPUSCULAR HEMOGLOBIN 30 pg (27-31); MEAN CORPUSCULAR HGB CONC 33 % (32-36); MEAN CORPUSCULAR VOLUME 91 fL (79.0-98.0); MONOCYTES # (AUTO) 0.7 K/uL (0.0-1.0); NEUTROPHILS # (AUTO) 6.5 K/uL (1.8-7.7); NEUTROPHILS % (AUTO) 69.6 % (40.0-70.0); PLATELET COUNT (AUTO) 426 K/uL (130-430); RED BLOOD CELL COUNT(AUTO) 3.54 MIL/uL (4.2-6.2); RED CELL DISTRIBUTION WIDTH 12.6 % (9.0-15.0); WHITE BLOOD COUNT (AUTO) 9.3 K/uL (4.8-10.8)
[2024-01-31 07:56] LABS: ALBUMIN 2.4 g/dL (3.4-4.8); CALCIUM 8.8 mg/dL (8.4-11.0); CREATININE 0.75 mg/dL (0.55-1.30); POTASSIUM 4.3 mmol/L (3.5-5.1); TOTAL BILIRUBIN 0.2 mg/dL (0.0-1.0); TOTAL PROTEIN, SERUM 6.6 g/dL (6.4-8.3)
[2024-01-31] MEDS: cefTRIAXone 1 GM in D5W 50 ML IV SCH (08:30)
[2024-01-31] MEDS: CITALOPRAM HYDROBROMIDE 20 MG TABLET PO SCH (09:00)
[2024-01-31] MEDS: ceFAZolin SODIUM 2 GM in D5W 100 ML IV SCH (22:39)
[2024-02-01 00:05] VITALS: BP_SYST 115; PULSE 64; RESP 16; TEMP 97.4; O2SAT 100
[2024-02-01 07:30] VITALS: BP_SYST 115; PULSE 65; RESP 17; TEMP 97.2; O2SAT 100
[2024-02-01 08:41] LABS: BASOPHILS # (AUTO) 0.1 K/uL (0.0-0.2); BASOPHILS % (AUTO) 0.7 % (0.0-2.0); EOSINOPHILS # (AUTO) 0.1 K/uL (0.0-0.4); EOSINOPHILS % (AUTO) 1.3 % (0.0-4.0); HEMATOCRIT 35.4 % (36-54); HEMOGLOBIN 11.5 g/dL (14.0-18.0); LYMPHOCYTES # (AUTO) 1.6 K/uL (1.0-5.5); LYMPHOCYTES % (AUTO) 17.3 % (20.5-51.5); MEAN CORPUSCULAR HEMOGLOBIN 30 pg (27-31); MEAN CORPUSCULAR HGB CONC 33 % (32-36); MEAN CORPUSCULAR VOLUME 91 fL (79.0-98.0); MONOCYTES # (AUTO) 0.6 K/uL (0.0-1.0); MONOCYTES % (AUTO) 6.3 % (1.7-9.3); NEUTROPHILS # (AUTO) 6.7 K/uL (1.8-7.7); NEUTROPHILS % (AUTO) 74.4 % (40.0-70.0); PLATELET COUNT (AUTO) 432 K/uL (130-430); RED BLOOD CELL COUNT(AUTO) 3.87 MIL/uL (4.2-6.2); RED CELL DISTRIBUTION WIDTH 12.4 % (9.0-15.0)
[2024-02-01 08:55] LABS: ERYTHROCYTE SEDIMENTATION RATE 73 MM/HR (0-15)
[2024-02-01 09:56] LABS: CALCIUM 9.1 mg/dL (8.4-11.0); CREATININE 0.73 mg/dL (0.55-1.30); POTASSIUM 4.4 mmol/L (3.5-5.1); THYROID STIMULATING HORMONE 2.28 uIu/mL (0.34-4.82)
[2024-02-01] MEDS: NACL 0.9% 1,000 ML IV ONE (13:37)
[2024-02-01 15:37] VITALS: BP_SYST 104; PULSE 56; RESP 16; TEMP 97.1; O2SAT 99
[2024-02-01 20:00] VITALS: BP_SYST 113; PULSE 87; RESP 18; TEMP 97.6; O2SAT 99
[2024-02-01 21:45] VITALS: O2SAT 99
[2024-02-02] VITALS (7 sets, daily range): BP systolic 88–130; PULSE 50–67; RESP 12–17; TEMP 97.4–98.6; O2SAT 99–100
[2024-02-02 08:27] LABS: BASOPHILS # (AUTO) 0.1 K/uL (0.0-0.2); BASOPHILS % (AUTO) 0.5 % (0.0-2.0); EOSINOPHILS # (AUTO) 0.2 K/uL (0.0-0.4); EOSINOPHILS % (AUTO) 1.5 % (0.0-4.0); HEMATOCRIT 32.8 % (36-54); HEMOGLOBIN 11.1 g/dL (14.0-18.0); LYMPHOCYTES # (AUTO) 1.9 K/uL (1.0-5.5); LYMPHOCYTES % (AUTO) 18.7 % (20.5-51.5); MEAN CORPUSCULAR HEMOGLOBIN 31 pg (27-31); MEAN CORPUSCULAR HGB CONC 34 % (32-36); MEAN CORPUSCULAR VOLUME 91 fL (79.0-98.0); MONOCYTES # (AUTO) 0.6 K/uL (0.0-1.0); MONOCYTES % (AUTO) 6.2 % (1.7-9.3); NEUTROPHILS # (AUTO) 7.6 K/uL (1.8-7.7); NEUTROPHILS % (AUTO) 73.1 % (40.0-70.0); PLATELET COUNT (AUTO) 432 K/uL (130-430); RED BLOOD CELL COUNT(AUTO) 3.62 MIL/uL (4.2-6.2); RED CELL DISTRIBUTION WIDTH 12.6 % (9.0-15.0); WHITE BLOOD COUNT (AUTO) 10.4 K/uL (4.8-10.8)
[2024-02-02 08:35] LABS: CALCIUM 9.1 mg/dL (8.4-11.0); CREATININE 0.76 mg/dL (0.55-1.30); POTASSIUM 3.9 mmol/L (3.5-5.1)
[2024-02-02 08:37] LABS: ERYTHROCYTE SEDIMENTATION RATE 41 MM/HR (0-15)
[2024-02-02] MEDS: INSULIN REGULAR, HUMAN 100 UNITS/ML, 3 ML VIAL (humuLIN R) SUBCUT PRN (21:05)
[2024-02-03 05:55] LABS: BASOPHILS # (AUTO) 0.1 K/uL (0.0-0.2); BASOPHILS % (AUTO) 0.6 % (0.0-2.0); EOSINOPHILS # (AUTO) 0.1 K/uL (0.0-0.4); EOSINOPHILS % (AUTO) 0.9 % (0.0-4.0); HEMATOCRIT 31.4 % (36-54); HEMOGLOBIN 10.6 g/dL (14.0-18.0); LYMPHOCYTES # (AUTO) 2.6 K/uL (1.0-5.5); LYMPHOCYTES % (AUTO) 25.2 % (20.5-51.5); MEAN CORPUSCULAR HEMOGLOBIN 30 pg (27-31); MEAN CORPUSCULAR HGB CONC 34 % (32-36); MEAN CORPUSCULAR VOLUME 90 fL (79.0-98.0); MONOCYTES # (AUTO) 0.9 K/uL (0.0-1.0); MONOCYTES % (AUTO) 8.2 % (1.7-9.3); NEUTROPHILS # (AUTO) 6.8 K/uL (1.8-7.7); NEUTROPHILS % (AUTO) 65.1 % (40.0-70.0); PLATELET COUNT (AUTO) 420 K/uL (130-430); RED BLOOD CELL COUNT(AUTO) 3.49 MIL/uL (4.2-6.2); RED CELL DISTRIBUTION WIDTH 12.6 % (9.0-15.0); WHITE BLOOD COUNT (AUTO) 10.4 K/uL (4.8-10.8)
[2024-02-03 06:26] LABS: ERYTHROCYTE SEDIMENTATION RATE 83 MM/HR (0-15)
[2024-02-03 06:36] LABS: ALBUMIN 2.6 g/dL (3.4-4.8); CALCIUM 9.3 mg/dL (8.4-11.0); CREATININE 0.74 mg/dL (0.55-1.30); POTASSIUM 4.3 mmol/L (3.5-5.1); TOTAL BILIRUBIN 0.2 mg/dL (0.0-1.0); TOTAL PROTEIN, SERUM 6.9 g/dL (6.4-8.3)
[2024-02-03] MEDS ORDERED: GLUCOSE (DEXTROSE) ORAL GEL -Adults PO PRN (07:00)
[2024-02-03] MEDS ORDERED: D5W 1,000 ML IV PRN (07:00)
[2024-02-03] MEDS: DEXTROSE 50% JECT 50 ML DISP.SYRIN ONE (07:05)
[2024-02-03 07:35] VITALS: BP_SYST 110; PULSE 57; RESP 15; TEMP 97.7; O2SAT 100
[2024-02-03 08:30] VITALS: O2SAT 100
[2024-02-03] MEDS ORDERED: fentaNYL CITRATE/PF 100 MCG/2 ML AMP ONE (10:25)
[2024-02-03] MEDS ORDERED: NS IRRIG SOLN 1000 ML IR ONE (10:25)
[2024-02-03] MEDS ORDERED: LIDOCAINE MPF 2% 20 MG/1 ML, 5 ML VIAL INH ONE (10:25)
[2024-02-03] MEDS ORDERED: DEXAMETHASONE SOD PHOSPHATE 4 MG/ML VIAL ONE (10:25)
[2024-02-03] MEDS ORDERED: MIDAZOLAM HCL 2 MG/2 ML VIAL (VERSED) ONE (10:25)
[2024-02-03] MEDS ORDERED: SEVOFLURANE 15 MIN GAS INH ONE (10:25)
[2024-02-03] MEDS ORDERED: LR 1,000 ML IV.SOLN IV ONE (10:25)
[2024-02-03] MEDS ORDERED: PROPOFOL 200MG/ 20ML VIAL (DIPRIVAN) IV ONE (10:25)
[2024-02-03] MEDS ORDERED: BUPIVACAINE /PF 0.25% 30 ML VIAL INJ ONE (10:25)
[2024-02-03] MEDS ORDERED: NS 1000 ML IV.SOLN IV ONE (10:25)
[2024-02-03] MEDS ORDERED: ONDANSETRON HCL 4 MG/2 ML VIAL ONE (10:25)
[2024-02-03] MEDS ORDERED: HYDROmorphone 1 MG/ML INJ. CARTRIDGE IVP PRN (11:00)
[2024-02-03] MEDS ORDERED: MEPERIDINE HCL/PF 25 MG/ML DISP.SYRIN IVP PRN (11:00)
[2024-02-03] MEDS ORDERED: METOCLOPRAMIDE HCL 10 MG/2 ML VIAL IVP PRN (11:00)
[2024-02-03] MEDS: D5LR 1,000 ML IV SCH (11:00)
[2024-02-03] MEDS: HYDROmorphone 1 MG/ML INJ. CARTRIDGE IVP PRN (11:54)
[2024-02-03] MEDS: HYDROmorphone 1 MG/ML INJ. CARTRIDGE ONE (11:55)
[2024-02-03 13:00] VITALS: BP_SYST 121; PULSE 68; RESP 15; TEMP 97.7; O2SAT 100
[2024-02-03 20:00] VITALS: BP_SYST 113; PULSE 83; RESP 18; TEMP 97.1; O2SAT 97
[2024-02-04 00:02] VITALS: BP_SYST 100; PULSE 71; RESP 18; TEMP 97.4; O2SAT 98
[2024-02-04 07:37] LABS: CALCIUM 9.1 mg/dL (8.4-11.0); CREATININE 0.77 mg/dL (0.55-1.30); POTASSIUM 4.7 mmol/L (3.5-5.1)
[2024-02-04 07:42] LABS: BASOPHILS % (AUTO) 0.2 % (0.0-2.0); EOSINOPHILS % (AUTO) 0.2 % (0.0-4.0); HEMATOCRIT 29.1 % (36-54); HEMOGLOBIN 9.7 g/dL (14.0-18.0); LYMPHOCYTES # (AUTO) 1.7 K/uL (1.0-5.5); LYMPHOCYTES % (AUTO) 17.6 % (20.5-51.5); MEAN CORPUSCULAR HEMOGLOBIN 30 pg (27-31); MEAN CORPUSCULAR HGB CONC 33 % (32-36); MEAN CORPUSCULAR VOLUME 90 fL (79.0-98.0); MONOCYTES # (AUTO) 0.8 K/uL (0.0-1.0); MONOCYTES % (AUTO) 8.1 % (1.7-9.3); NEUTROPHILS # (AUTO) 7.1 K/uL (1.8-7.7); NEUTROPHILS % (AUTO) 73.9 % (40.0-70.0); PLATELET COUNT (AUTO) 418 K/uL (130-430); RED BLOOD CELL COUNT(AUTO) 3.23 MIL/uL (4.2-6.2); RED CELL DISTRIBUTION WIDTH 12.5 % (9.0-15.0); WHITE BLOOD COUNT (AUTO) 9.6 K/uL (4.8-10.8)
[2024-02-04 08:00] VITALS: BP_SYST 103; PULSE 69; RESP 17; TEMP 97; O2SAT 99
[2024-02-04 08:18] LABS: ERYTHROCYTE SEDIMENTATION RATE 74 MM/HR (0-15)
[2024-02-04 16:00] VITALS: BP_SYST 113; PULSE 67; RESP 16; TEMP 98.3; O2SAT 100
[2024-02-04 20:00] VITALS: BP_SYST 103; PULSE 62; RESP 18; TEMP 98.2
[2024-02-05 00:02] VITALS: BP_SYST 108; PULSE 65; RESP 18; TEMP 98.4; O2SAT 97
[2024-02-05 08:00] VITALS: BP_SYST 86; PULSE 65; RESP 17; TEMP 98.5; O2SAT 99
[2024-02-05 08:03] LABS: ALBUMIN 2.3 g/dL (3.4-4.8); CALCIUM 8.5 mg/dL (8.4-11.0); CREATININE 0.69 mg/dL (0.55-1.30); POTASSIUM 4.1 mmol/L (3.5-5.1); TOTAL BILIRUBIN 0.6 mg/dL (0.0-1.0); TOTAL PROTEIN, SERUM 6.2 g/dL (6.4-8.3)
[2024-02-05 08:31] LABS: BASOPHILS % (AUTO) 0.3 % (0.0-2.0); EOSINOPHILS % (AUTO) 0.3 % (0.0-4.0); HEMATOCRIT 26.7 % (36-54); LYMPHOCYTES # (AUTO) 2.5 K/uL (1.0-5.5); LYMPHOCYTES % (AUTO) 23.2 % (20.5-51.5); MEAN CORPUSCULAR HEMOGLOBIN 31 pg (27-31); MEAN CORPUSCULAR HGB CONC 34 % (32-36); MEAN CORPUSCULAR VOLUME 91 fL (79.0-98.0); MONOCYTES # (AUTO) 0.9 K/uL (0.0-1.0); MONOCYTES % (AUTO) 8.1 % (1.7-9.3); NEUTROPHILS # (AUTO) 7.3 K/uL (1.8-7.7); NEUTROPHILS % (AUTO) 68.1 % (40.0-70.0); PLATELET COUNT (AUTO) 396 K/uL (130-430); RED BLOOD CELL COUNT(AUTO) 2.93 MIL/uL (4.2-6.2); RED CELL DISTRIBUTION WIDTH 12.7 % (9.0-15.0); WHITE BLOOD COUNT (AUTO) 10.8 K/uL (4.8-10.8)
[2024-02-05 09:18] LABS: ERYTHROCYTE SEDIMENTATION RATE 63 MM/HR (0-15)
[2024-02-05] MEDS: NACL 0.9% 1,000 ML IV ONE (09:27)
[2024-02-05 10:00] VITALS: BP_SYST 93; PULSE 62
[2024-02-05 12:00] VITALS: BP_SYST 100; PULSE 67; RESP 18; TEMP 98.8; O2SAT 98
[2024-02-05 16:00] VITALS: BP_SYST 103; PULSE 72; RESP 19; TEMP 98.4; O2SAT 99
[2024-02-05 20:00] VITALS: BP_SYST 109; PULSE 65; RESP 16; TEMP 97.6; O2SAT 99
[2024-02-06 07:20] LABS: CALCIUM 8.6 mg/dL (8.4-11.0); CREATININE 0.6 mg/dL (0.55-1.30); POTASSIUM 4.2 mmol/L (3.5-5.1)
[2024-02-06 07:30] LABS: BASOPHILS % (AUTO) 0.4 % (0.0-2.0); EOSINOPHILS # (AUTO) 0.1 K/uL (0.0-0.4); EOSINOPHILS % (AUTO) 1.4 % (0.0-4.0); HEMATOCRIT 28.4 % (36-54); HEMOGLOBIN 9.3 g/dL (14.0-18.0); LYMPHOCYTES # (AUTO) 2.5 K/uL (1.0-5.5); LYMPHOCYTES % (AUTO) 24.1 % (20.5-51.5); MEAN CORPUSCULAR HEMOGLOBIN 30 pg (27-31); MEAN CORPUSCULAR HGB CONC 33 % (32-36); MEAN CORPUSCULAR VOLUME 92 fL (79.0-98.0); MONOCYTES % (AUTO) 9.7 % (1.7-9.3); NEUTROPHILS # (AUTO) 6.7 K/uL (1.8-7.7); NEUTROPHILS % (AUTO) 64.4 % (40.0-70.0); PLATELET COUNT (AUTO) 380 K/uL (130-430); RED CELL DISTRIBUTION WIDTH 12.5 % (9.0-15.0); WHITE BLOOD COUNT (AUTO) 10.3 K/uL (4.8-10.8)
[2024-02-06 07:52] LABS: ERYTHROCYTE SEDIMENTATION RATE 70 MM/HR (0-15)
[2024-02-06 08:00] VITALS: BP_SYST 128; PULSE 88; RESP 18; TEMP 99; O2SAT 100
[2024-02-06 12:20] VITALS: BP_SYST 111; PULSE 76; RESP 16; TEMP 98.4; O2SAT 99
[2024-02-06 16:00] VITALS: BP_SYST 98; PULSE 63; RESP 16; TEMP 98.4; O2SAT 100
[2024-02-06 20:00] VITALS: BP_SYST 115; PULSE 61; RESP 17; TEMP 98.2; O2SAT 99
[2024-02-06] MEDS: DEXTROSE 50%-WATER 50 ML DISP.SYRIN IVP PRN (20:34)
[2024-02-07] VITALS (7 sets, daily range): BP systolic 87–107; PULSE 55–66; RESP 16–20; TEMP 98–98.7; O2SAT 97–99
[2024-02-07] MEDS: HYDROcodone/ACETAMIN 5-325 MG TAB (NORCO/ VICODIN) PO PRN (00:32)
[2024-02-07 07:01] LABS: BASOPHILS % (AUTO) 0.3 % (0.0-2.0); EOSINOPHILS % (AUTO) 0.1 % (0.0-4.0); HEMATOCRIT 31.6 % (36-54); HEMOGLOBIN 10.5 g/dL (14.0-18.0); LYMPHOCYTES # (AUTO) 1.1 K/uL (1.0-5.5); LYMPHOCYTES % (AUTO) 11.1 % (20.5-51.5); MEAN CORPUSCULAR HEMOGLOBIN 30 pg (27-31); MEAN CORPUSCULAR HGB CONC 33 % (32-36); MEAN CORPUSCULAR VOLUME 91 fL (79.0-98.0); MONOCYTES # (AUTO) 0.8 K/uL (0.0-1.0); MONOCYTES % (AUTO) 7.7 % (1.7-9.3); NEUTROPHILS # (AUTO) 7.9 K/uL (1.8-7.7); NEUTROPHILS % (AUTO) 80.8 % (40.0-70.0); PLATELET COUNT (AUTO) 449 K/uL (130-430); RED BLOOD CELL COUNT(AUTO) 3.49 MIL/uL (4.2-6.2); RED CELL DISTRIBUTION WIDTH 12.6 % (9.0-15.0); WHITE BLOOD COUNT (AUTO) 9.8 K/uL (4.8-10.8)
[2024-02-07 07:25] LABS: ALBUMIN 2.5 g/dL (3.4-4.8); CALCIUM 8.9 mg/dL (8.4-11.0); CREATININE 0.6 mg/dL (0.55-1.30); ERYTHROCYTE SEDIMENTATION RATE 93 MM/HR (0-15); POTASSIUM 4.1 mmol/L (3.5-5.1); TOTAL BILIRUBIN 0.3 mg/dL (0.0-1.0); TOTAL PROTEIN, SERUM 6.9 g/dL (6.4-8.3)
[2024-02-07] MEDS ORDERED: CEL20 PO (09:04)
[2024-02-07] MEDS ORDERED: HONE15GE TP (09:04)
[2024-02-07] MEDS ORDERED: CEFA2SYR4 IV (09:04)
[2024-02-07] MEDS ORDERED: HYDROcodone/ACETAMIN 5-325 MG TAB (NORCO/ VICODIN) PO PRN (10:15)
[2024-02-07] MEDS ORDERED: LORazepam 2 MG/ML VIAL IVP PRN (10:15)
[2024-02-07] MEDS: HYDROcodone/ACETAMIN 10-325 MG TAB PO PRN (22:02)
== END 2024-02-08 | disposition home health service (06) | DRG 623 ==
LOC: SED 08:11 → STU 12:54 → SMU 01-31 10:14
PROVIDERS: ADMIT Preventive Medicine Preventive Medicine/Occupational Environmental Medicine; ATTEND Preventive Medicine Preventive Medicine/Occupational Environmental Medicine
PROC: 0JBN0ZZ Excision of Right Lower Leg Subcutaneous Tissue and Fascia, Open Approach (ICD-10-PCS; principal; 2024-01-30)
PROC: 4A00X4Z Measurement of Central Nervous Electrical Activity, External Approach (ICD-10-PCS; 2024-01-30)
PROC: 0JBN0ZZ Excision of Right Lower Leg Subcutaneous Tissue and Fascia, Open Approach (ICD-10-PCS; 2024-02-03)
DX: E11.69 Type 2 diabetes mellitus with other specified complication (principal); M86.8X6 Other osteomyelitis, lower leg; D64.9 Anemia, unspecified; D75.839 Thrombocytosis, unspecified; E11.65 Type 2 diabetes mellitus with hyperglycemia; E78.5 Hyperlipidemia, unspecified; E88.09 Other disorders of plasma-protein metabolism, not elsewhere classified; F32.A Depression, unspecified; I10 Essential (primary) hypertension; Z89.511 Acquired absence of right leg below knee; B95.61 Methicillin susceptible Staphylococcus aureus infection as the cause of diseases classified elsewhere; Z79.899 Other long term (current) drug therapy; Z88.8 Allergy status to other drugs, medicaments and biological substances
CPT/HCPCS: 36415; 70450-TC; 70496; 70498; 70551; 71045; 73721; 80048; 80053; 80076; 80307; 81000; 81001; 81015; 82140; 82948; 83735; 84100; 84443; 84484; 85025; 85610; 85651; 85730; 87040; 87070; 87075; 87186; 88304; 93005; 95816; 99285; A2004; A6209; C1751; G0378; G0480; G0481; G0482; J0696; J1100; J1170; J1815; J2250; J2405; J2704; J3010; J3490; J7030; J7040; J7060; J7120; Q9967

== ENCOUNTER 2024-02-12 14:11 | Inpatient (IN) | payer OTHER ==
[~2024-02-12] VITALS: Ht 157.5 cm; Wt 68.4 kg
[~2024-02-12 14:11] MED LIST changes: +CEFA2SYR4 IV; +CEL20 PO; +HONE15GE TP
[2024-02-12 14:15] VITALS: BP_SYST 99; PULSE 44; RESP 22; TEMP 98.3; O2SAT 98
[2024-02-12] MEDS: NALOXONE HCL 2 MG/2 ML SYR (NARCAN) IVP ONE (14:20)
[2024-02-12] MEDS: DOPamine PREMIX 250 ML IV ONE ×2 (14:30→14:45)
[2024-02-12] MEDS ORDERED: ATROPINE SULFATE 1 MG/10 ML SYRINGE IVP ONE (14:38)
[2024-02-12] MEDS: GLUCAGON,HUMAN RECOMBINANT 1 MG VIAL IVP ONE ×2 (14:38→14:45)
[2024-02-12] MEDS ORDERED: NALOXONE HCL 2 MG/2 ML SYR ONE (14:39)
[2024-02-12] MEDS ORDERED: CALCIUM GLUCONATE 1 GM/10 ML VIAL ONE ×2 (14:44→15:44)
[2024-02-12] MEDS: ATROPINE SULFATE 1 MG/10 ML SYRINGE IVP ONE ×3 (14:45→16:28)
[2024-02-12] MEDS ORDERED: ONDANSETRON HCL 4 MG/2 ML VIAL ONE (14:49)
[2024-02-12] MEDS: CALCIUM GLUCONATE 1 GM/10 ML VIAL IVP ONE ×2 (14:50→16:20)
[2024-02-12] MEDS: ONDANSETRON HCL 4 MG/2 ML VIAL IVP ONE (14:51)
[2024-02-12 14:58] LABS: BASOPHILS # (AUTO) 0.1 K/uL (0.0-0.2); BASOPHILS % (AUTO) 1.3 % (0.0-2.0); EOSINOPHILS # (AUTO) 0.3 K/uL (0.0-0.4); EOSINOPHILS % (AUTO) 3.3 % (0.0-4.0); HEMATOCRIT 32.4 % (36-54); HEMOGLOBIN 10.4 g/dL (14.0-18.0); LYMPHOCYTES # (AUTO) 2.2 K/uL (1.0-5.5); LYMPHOCYTES % (AUTO) 24.9 % (20.5-51.5); MEAN CORPUSCULAR HEMOGLOBIN 30 pg (27-31); MEAN CORPUSCULAR HGB CONC 32 % (32-36); MEAN CORPUSCULAR VOLUME 92 fL (79.0-98.0); MONOCYTES # (AUTO) 0.8 K/uL (0.0-1.0); MONOCYTES % (AUTO) 8.7 % (1.7-9.3); NEUTROPHILS # (AUTO) 5.3 K/uL (1.8-7.7); NEUTROPHILS % (AUTO) 61.8 % (40.0-70.0); PLATELET COUNT (AUTO) 563 K/uL (130-430); RED BLOOD CELL COUNT(AUTO) 3.51 MIL/uL (4.2-6.2); WHITE BLOOD COUNT (AUTO) 8.6 K/uL (4.8-10.8)
[2024-02-12] MEDS ORDERED: NOREPINEPHRINE 4 MG/4 ML VIAL IV ONE (15:10)
[2024-02-12 15:14] LABS: ALANINE AMINOTRANSFERASE 22 U/L (12-78); ALBUMIN 2.7 g/dL (3.4-4.8); ANION GAP 11 (5-15); ASPARTATE AMINOTRANSFERASE 16 U/L (10-37); BILIRUBIN,DIRECT 0.1 mg/dL (0.0-0.3); CALCIUM 8.4 mg/dL (8.4-11.0); CARBON DIOXIDE 26 mmol/L (23-29); CHLORIDE 106 mmol/L (98-107); CREATININE 1.38 mg/dL (0.55-1.30); GFR AFRICAN AMERICAN 72 mL/min (>90); GLUCOSE 146 mg/dL (74-106); POTASSIUM 4.3 mmol/L (3.5-5.1); SALICYLATE 1 mg/dL (3-30); SODIUM SERUM 143 mmol/L (136-145); TOTAL BILIRUBIN 0.1 mg/dL (0.0-1.0); TOTAL PROTEIN, SERUM 6.8 g/dL (6.4-8.3); UREA NITROGEN, BLOOD 40 mg/dL (8-21)
[2024-02-12 15:16] LABS: ACETAMINOPHEN < 1 ug/mL (1-30); ALCOHOL, BLOOD < 3 mg/dL (<10); GFR NON AFRICAN-AMERICAN 60 mL/min (>90)
[2024-02-12] MEDS: CALCIUM GLUCONATE 1 GM in NS 100 ML IV ONE (15:30)
[2024-02-12] MEDS: NACL 0.9% 1,000 ML IV ONE ×4 (15:59→21:00)
[2024-02-12] MEDS: NOREPINEPHRINE BITARTRATE 4 MG in NS 246 ML IV ONE (16:36)
[2024-02-12] MEDS ORDERED: DEXTROSE 50% JECT 50 ML DISP.SYRIN IVP PRN ×2 (16:45→20:45)
[2024-02-12] MEDS ORDERED: INSULIN REGULAR, HUMAN 100 UNITS/ML, 3 ML VIAL (humuLIN R) SUBCUT PRN (16:45)
[2024-02-12 17:45] LABS: BASOPHILS # (AUTO) 0.1 K/uL (0.0-0.2); BASOPHILS % (AUTO) 0.6 % (0.0-2.0); EOSINOPHILS # (AUTO) 0.4 K/uL (0.0-0.4); EOSINOPHILS % (AUTO) 2.2 % (0.0-4.0); HEMATOCRIT 33.7 % (36-54); HEMOGLOBIN 11.4 g/dL (14.0-18.0); LYMPHOCYTES # (AUTO) 2.6 K/uL (1.0-5.5); LYMPHOCYTES % (AUTO) 13.5 % (20.5-51.5); MEAN CORPUSCULAR HEMOGLOBIN 31 pg (27-31); MEAN CORPUSCULAR HGB CONC 34 % (32-36); MEAN CORPUSCULAR VOLUME 93 fL (79.0-98.0); MONOCYTES # (AUTO) 1.2 K/uL (0.0-1.0); MONOCYTES % (AUTO) 6.3 % (1.7-9.3); NEUTROPHILS % (AUTO) 77.4 % (40.0-70.0); PLATELET COUNT (AUTO) 589 K/uL (130-430); RED BLOOD CELL COUNT(AUTO) 3.64 MIL/uL (4.2-6.2); RED CELL DISTRIBUTION WIDTH 13.4 % (9.0-15.0); WHITE BLOOD COUNT (AUTO) 19.4 K/uL (4.8-10.8)
[2024-02-12 18:02] LABS: ALANINE AMINOTRANSFERASE 18 U/L (12-78); ANION GAP 9 (5-15); ASPARTATE AMINOTRANSFERASE 25 U/L (10-37); CALCIUM 9.8 mg/dL (8.4-11.0); CARBON DIOXIDE 24 mmol/L (23-29); CHLORIDE 110 mmol/L (98-107); CREATININE 1.21 mg/dL (0.55-1.30); GFR AFRICAN AMERICAN 84 mL/min (>90); GLUCOSE 232 mg/dL (74-106); PHOSPHORUS 3.9 mg/dL (2.7-4.5); POTASSIUM 4.8 mmol/L (3.5-5.1); SODIUM SERUM 143 mmol/L (136-145); TOTAL BILIRUBIN 0.2 mg/dL (0.0-1.0); TOTAL PROTEIN, SERUM 6.8 g/dL (6.4-8.3); UREA NITROGEN, BLOOD 39 mg/dL (8-21)
[2024-02-12 18:04] LABS: GFR NON AFRICAN-AMERICAN 70 mL/min (>90)
[2024-02-12 18:30] VITALS: BP_SYST 100; PULSE 48; RESP 17; TEMP 98.4; O2SAT 96
[2024-02-12] MEDS: CALCIUM GLUC 2 GM/100ML-NACL 100 ML IV PRN (18:42)
[2024-02-12 19:17] LABS: ACETONE, SERUM NEGATIVE (NEGATIVE)
[2024-02-12 20:00] VITALS: BP_SYST 116; BP_SYST 123; PULSE 42; RESP 16; RESP 19; TEMP 97.7; O2SAT 91; O2SAT 97
[2024-02-12] MEDS: NOREPINEPHRINE BITARTRATE 4 MG in NS 246 ML IV PRN (20:50)
[2024-02-12 21:00] VITALS: BP_SYST 111; PULSE 37; RESP 19; O2SAT 98
[2024-02-12] MEDS ORDERED: THEOPHYLLINE ANHYDROUS 200 MG CAP.ER.24H PO SCH (21:00)
[2024-02-12] MEDS: PIPERACILLIN/TAZO 3.375 GM in D5W 50 ML IV ONE (21:31)
[2024-02-12] MEDS: NACL 0.9% 1,000 ML IV SCH (21:31)
[2024-02-12] MEDS: THEOPHYLLINE ANHYDROUS 300 MG TAB.SR.12H PO SCH (21:32)
[2024-02-12 21:49] LABS: BARBITURATE, URINE NEGATIVE (NEG <=200); BENZODIAZEPINE, URINE NEGATIVE (NEG <=150); CANNABINOID, URINE NEGATIVE (NEG <=50); COCAINE, URINE NEGATIVE (NEG <=150); METHAMPHETAMINES SCREEN,URINE NEGATIVE (NEG <=500); OPIATE, URINE NEGATIVE (NEG <=100); PHENCYCLIDINE SCREEN,URINE NEGATIVE (NEG <=25); UR TRICYCLIC ANTIDEPRESSANTS NEGATIVE (NEG <=300); URINE AMPHETAMINE NEGATIVE (NEG <=500); URINE METHADONE NEGATIVE (NEG <=200); URINE OXYCODONE SCREEN NEGATIVE (NEG <=100)
[2024-02-12 22:00] VITALS: BP_SYST 110; PULSE 40; RESP 20; O2SAT 92
[2024-02-12 22:08] LABS: BILIRUBIN,URINE NEGATIVE (NEGATIVE); BLOOD, URINE NEGATIVE (NEGATIVE); CLARITY/URINE CLEAR (CLEAR); COLOR,URINE YELLOW (YELLOW); GLUCOSE,URINE 3+ (NEGATIVE); KETONES,URINE NEGATIVE (NEGATIVE)
[2024-02-12 22:09] LABS: LEUKOCYTE ESTERASE ,URINE NEGATIVE (NEGATIVE); NITRITE, URINE NEGATIVE (NEGATIVE); PROTEIN URINE TRACE (NEGATIVE); UROBILINOGEN,URINE 0.2 (0.2-1.0)
[2024-02-12 22:11] LABS: BACTERIA,URINE None Seen /HPF (None Seen)
[2024-02-12 23:00] VITALS: BP_SYST 95; PULSE 40; RESP 20; O2SAT 92
[2024-02-13] VITALS (51 sets, daily range): BP systolic 78–163; PULSE 46–90; RESP 11–24; TEMP 97.6–98.9; O2SAT 94–99
[2024-02-13] MEDS: DOPamine PREMIX 250 ML IV ONE (01:00)
[2024-02-13] MEDS: PIPERACILLIN/TAZO 3.375 GM in D5W 50 ML IV SCH (03:32)
[2024-02-13 05:41] LABS: BASOPHILS # (AUTO) 0.1 K/uL (0.0-0.2); BASOPHILS % (AUTO) 0.7 % (0.0-2.0); EOSINOPHILS # (AUTO) 0.1 K/uL (0.0-0.4); EOSINOPHILS % (AUTO) 0.7 % (0.0-4.0); HEMATOCRIT 34.1 % (36-54); HEMOGLOBIN 11.2 g/dL (14.0-18.0); LYMPHOCYTES # (AUTO) 1.8 K/uL (1.0-5.5); LYMPHOCYTES % (AUTO) 15.8 % (20.5-51.5); MEAN CORPUSCULAR HEMOGLOBIN 30 pg (27-31); MEAN CORPUSCULAR HGB CONC 33 % (32-36); MEAN CORPUSCULAR VOLUME 91 fL (79.0-98.0); MONOCYTES # (AUTO) 1.4 K/uL (0.0-1.0); MONOCYTES % (AUTO) 12.1 % (1.7-9.3); NEUTROPHILS # (AUTO) 8.2 K/uL (1.8-7.7); NEUTROPHILS % (AUTO) 70.7 % (40.0-70.0); PLATELET COUNT (AUTO) 583 K/uL (130-430); RED BLOOD CELL COUNT(AUTO) 3.76 MIL/uL (4.2-6.2); RED CELL DISTRIBUTION WIDTH 12.7 % (9.0-15.0); WHITE BLOOD COUNT (AUTO) 11.6 K/uL (4.8-10.8)
[2024-02-13 06:57] LABS: CREATININE 1.21 mg/dL (0.55-1.30); PHOSPHORUS 4.4 mg/dL (2.7-4.5); POTASSIUM 4.4 mmol/L (3.5-5.1); TOTAL BILIRUBIN 0.3 mg/dL (0.0-1.0); TOTAL PROTEIN, SERUM 7.3 g/dL (6.4-8.3)
[2024-02-13] MEDS: DOPamine PREMIX 250 ML IV PRN (10:34)
[2024-02-13] MEDS: INSULIN REGULAR, HUMAN 100 UNITS/ML, 3 ML VIAL (humuLIN R) SUBCUT PRN (21:02)
[2024-02-14] VITALS (24 sets, daily range): BP systolic 66–135; PULSE 71–97; RESP 12–20; TEMP 97.6–98.7; O2SAT 93–99
[2024-02-14 05:32] LABS: BASOPHILS # (AUTO) 0.1 K/uL (0.0-0.2); BASOPHILS % (AUTO) 0.8 % (0.0-2.0); EOSINOPHILS # (AUTO) 0.4 K/uL (0.0-0.4); EOSINOPHILS % (AUTO) 2.8 % (0.0-4.0); HEMATOCRIT 34.2 % (36-54); HEMOGLOBIN 11.1 g/dL (14.0-18.0); LYMPHOCYTES # (AUTO) 2.2 K/uL (1.0-5.5); LYMPHOCYTES % (AUTO) 16.7 % (20.5-51.5); MEAN CORPUSCULAR HEMOGLOBIN 30 pg (27-31); MEAN CORPUSCULAR HGB CONC 32 % (32-36); MEAN CORPUSCULAR VOLUME 92 fL (79.0-98.0); MONOCYTES # (AUTO) 1.1 K/uL (0.0-1.0); MONOCYTES % (AUTO) 8.3 % (1.7-9.3); NEUTROPHILS # (AUTO) 9.5 K/uL (1.8-7.7); NEUTROPHILS % (AUTO) 71.4 % (40.0-70.0); PLATELET COUNT (AUTO) 515 K/uL (130-430); RED BLOOD CELL COUNT(AUTO) 3.74 MIL/uL (4.2-6.2); WHITE BLOOD COUNT (AUTO) 13.3 K/uL (4.8-10.8)
[2024-02-14] MEDS: MIDODRINE HCL 5 MG TABLET (PROAMATINE) PO SCH (15:33)
[2024-02-14] MEDS: CITALOPRAM HYDROBROMIDE 20 MG TABLET PO ONE (15:36)
[2024-02-15] VITALS (24 sets, daily range): BP systolic 77–162; PULSE 68–84; RESP 12–51; TEMP 97–98.7; O2SAT 96–98
[2024-02-15 06:21] LABS: BASOPHILS # (AUTO) 0.1 K/uL (0.0-0.2); BASOPHILS % (AUTO) 1.2 % (0.0-2.0); EOSINOPHILS # (AUTO) 0.3 K/uL (0.0-0.4); EOSINOPHILS % (AUTO) 4.2 % (0.0-4.0); HEMOGLOBIN 10.9 g/dL (14.0-18.0); LYMPHOCYTES # (AUTO) 2.3 K/uL (1.0-5.5); LYMPHOCYTES % (AUTO) 29.8 % (20.5-51.5); MEAN CORPUSCULAR HEMOGLOBIN 30 pg (27-31); MEAN CORPUSCULAR HGB CONC 33 % (32-36); MEAN CORPUSCULAR VOLUME 91 fL (79.0-98.0); MONOCYTES # (AUTO) 0.7 K/uL (0.0-1.0); MONOCYTES % (AUTO) 8.4 % (1.7-9.3); NEUTROPHILS # (AUTO) 4.5 K/uL (1.8-7.7); NEUTROPHILS % (AUTO) 56.4 % (40.0-70.0); PLATELET COUNT (AUTO) 485 K/uL (130-430); RED BLOOD CELL COUNT(AUTO) 3.63 MIL/uL (4.2-6.2); RED CELL DISTRIBUTION WIDTH 13.4 % (9.0-15.0); WHITE BLOOD COUNT (AUTO) 7.9 K/uL (4.8-10.8)
[2024-02-15 06:58] LABS: ALBUMIN 2.4 g/dL (3.4-4.8); CALCIUM 8.5 mg/dL (8.4-11.0); CREATININE 0.6 mg/dL (0.55-1.30); POTASSIUM 4.2 mmol/L (3.5-5.1); TOTAL BILIRUBIN 0.5 mg/dL (0.0-1.0); TOTAL PROTEIN, SERUM 6.3 g/dL (6.4-8.3)
[2024-02-15] MEDS: CITALOPRAM HYDROBROMIDE 20 MG TABLET PO SCH (09:31)
[2024-02-15] MEDS: ceFAZolin SODIUM 2 GM in D5W 100 ML IV SCH (20:11)
[2024-02-16] VITALS (24 sets, daily range): BP systolic 120–166; PULSE 64–83; RESP 6–16; TEMP 96.4–98.5; O2SAT 95–99
[2024-02-16 06:25] LABS: BASOPHILS # (AUTO) 0.1 K/uL (0.0-0.2); BASOPHILS % (AUTO) 1.2 % (0.0-2.0); EOSINOPHILS # (AUTO) 0.3 K/uL (0.0-0.4); HEMATOCRIT 31.4 % (36-54); HEMOGLOBIN 10.5 g/dL (14.0-18.0); LYMPHOCYTES # (AUTO) 2.3 K/uL (1.0-5.5); LYMPHOCYTES % (AUTO) 32.1 % (20.5-51.5); MEAN CORPUSCULAR HEMOGLOBIN 30 pg (27-31); MEAN CORPUSCULAR HGB CONC 34 % (32-36); MEAN CORPUSCULAR VOLUME 91 fL (79.0-98.0); MONOCYTES # (AUTO) 0.6 K/uL (0.0-1.0); MONOCYTES % (AUTO) 8.4 % (1.7-9.3); NEUTROPHILS # (AUTO) 3.9 K/uL (1.8-7.7); NEUTROPHILS % (AUTO) 54.3 % (40.0-70.0); PLATELET COUNT (AUTO) 464 K/uL (130-430); RED BLOOD CELL COUNT(AUTO) 3.47 MIL/uL (4.2-6.2); WHITE BLOOD COUNT (AUTO) 7.2 K/uL (4.8-10.8)
[2024-02-16 06:53] LABS: ALBUMIN 2.4 g/dL (3.4-4.8); CALCIUM 8.3 mg/dL (8.4-11.0); CREATININE 0.54 mg/dL (0.55-1.30); POTASSIUM 4.1 mmol/L (3.5-5.1); TOTAL BILIRUBIN 0.3 mg/dL (0.0-1.0)
[2024-02-16] MEDS: GABAPENTIN 300 MG CAPSULE PO ONE (18:21)
[2024-02-16] MEDS: HYDROcodone/ACETAMIN 5-325 MG TAB (NORCO/ VICODIN) PO PRN (18:22)
[2024-02-16] MEDS: GABAPENTIN 300 MG CAPSULE PO SCH (20:21)
[2024-02-17] VITALS (24 sets, daily range): BP systolic 85–174; PULSE 62–79; RESP 8–18; TEMP 96.4–97.7; O2SAT 96–99
[2024-02-17] MEDS: hydrALAZINE HCL 20 MG/ML VIAL IVP PRN (05:40)
[2024-02-17 05:52] LABS: BASOPHILS # (AUTO) 0.1 K/uL (0.0-0.2); BASOPHILS % (AUTO) 1.2 % (0.0-2.0); EOSINOPHILS # (AUTO) 0.3 K/uL (0.0-0.4); EOSINOPHILS % (AUTO) 5.6 % (0.0-4.0); HEMATOCRIT 31.4 % (36-54); HEMOGLOBIN 10.3 g/dL (14.0-18.0); LYMPHOCYTES # (AUTO) 2.2 K/uL (1.0-5.5); LYMPHOCYTES % (AUTO) 36.2 % (20.5-51.5); MEAN CORPUSCULAR HEMOGLOBIN 30 pg (27-31); MEAN CORPUSCULAR HGB CONC 33 % (32-36); MEAN CORPUSCULAR VOLUME 91 fL (79.0-98.0); MONOCYTES # (AUTO) 0.5 K/uL (0.0-1.0); MONOCYTES % (AUTO) 8.8 % (1.7-9.3); NEUTROPHILS # (AUTO) 2.9 K/uL (1.8-7.7); NEUTROPHILS % (AUTO) 48.2 % (40.0-70.0); PLATELET COUNT (AUTO) 440 K/uL (130-430); RED BLOOD CELL COUNT(AUTO) 3.44 MIL/uL (4.2-6.2); RED CELL DISTRIBUTION WIDTH 13.2 % (9.0-15.0); WHITE BLOOD COUNT (AUTO) 6.1 K/uL (4.8-10.8)
[2024-02-17 06:06] LABS: ALBUMIN 2.3 g/dL (3.4-4.8); CALCIUM 8.6 mg/dL (8.4-11.0); CREATININE 0.66 mg/dL (0.55-1.30); TOTAL BILIRUBIN 0.2 mg/dL (0.0-1.0)
[2024-02-17] MEDS: LOSARTAN POTASSIUM 25 MG TABLET PO SCH (09:00)
[2024-02-17] MEDS: ATORVASTATIN 10 MG TABLET PO SCH (10:02)
[2024-02-17] MEDS: NIFEdipine 30 MG TAB.ER.24 PO ONE (12:00)
[2024-02-18] VITALS (24 sets, daily range): BP systolic 109–156; PULSE 58–87; RESP 10–16; TEMP 96.4–98.3; O2SAT 96–99
[2024-02-18 06:28] LABS: BASOPHILS # (AUTO) 0.1 K/uL (0.0-0.2); BASOPHILS % (AUTO) 0.7 % (0.0-2.0); EOSINOPHILS # (AUTO) 0.4 K/uL (0.0-0.4); EOSINOPHILS % (AUTO) 5.8 % (0.0-4.0); HEMATOCRIT 30.6 % (36-54); HEMOGLOBIN 10.3 g/dL (14.0-18.0); LYMPHOCYTES # (AUTO) 1.8 K/uL (1.0-5.5); LYMPHOCYTES % (AUTO) 24.8 % (20.5-51.5); MEAN CORPUSCULAR HEMOGLOBIN 31 pg (27-31); MEAN CORPUSCULAR HGB CONC 34 % (32-36); MEAN CORPUSCULAR VOLUME 91 fL (79.0-98.0); MONOCYTES # (AUTO) 0.6 K/uL (0.0-1.0); MONOCYTES % (AUTO) 7.9 % (1.7-9.3); NEUTROPHILS # (AUTO) 4.5 K/uL (1.8-7.7); NEUTROPHILS % (AUTO) 60.8 % (40.0-70.0); PLATELET COUNT (AUTO) 426 K/uL (130-430); RED BLOOD CELL COUNT(AUTO) 3.36 MIL/uL (4.2-6.2); RED CELL DISTRIBUTION WIDTH 13.5 % (9.0-15.0); WHITE BLOOD COUNT (AUTO) 7.3 K/uL (4.8-10.8)
[2024-02-18 06:50] LABS: ALBUMIN 2.5 g/dL (3.4-4.8); CALCIUM 8.1 mg/dL (8.4-11.0); CREATININE 0.52 mg/dL (0.55-1.30); POTASSIUM 4.1 mmol/L (3.5-5.1); TOTAL BILIRUBIN 0.2 mg/dL (0.0-1.0); TOTAL PROTEIN, SERUM 5.8 g/dL (6.4-8.3)
[2024-02-18] MEDS: GABAPENTIN 100 MG CAPSULE ONE (08:26)
[2024-02-18] MEDS: NIFEdipine 30 MG TAB.ER.24 PO SCH (09:24)
[2024-02-19] VITALS (21 sets, daily range): BP systolic 108–165; PULSE 59–84; RESP 12–18; TEMP 97.1–97.8; O2SAT 95–99
[2024-02-19 06:54] LABS: BASOPHILS # (AUTO) 0.1 K/uL (0.0-0.2); BASOPHILS % (AUTO) 0.9 % (0.0-2.0); EOSINOPHILS # (AUTO) 0.3 K/uL (0.0-0.4); EOSINOPHILS % (AUTO) 4.8 % (0.0-4.0); HEMOGLOBIN 9.7 g/dL (14.0-18.0); LYMPHOCYTES # (AUTO) 1.8 K/uL (1.0-5.5); MEAN CORPUSCULAR HEMOGLOBIN 30 pg (27-31); MEAN CORPUSCULAR HGB CONC 33 % (32-36); MEAN CORPUSCULAR VOLUME 91 fL (79.0-98.0); MONOCYTES # (AUTO) 0.7 K/uL (0.0-1.0); MONOCYTES % (AUTO) 9.5 % (1.7-9.3); NEUTROPHILS # (AUTO) 4.1 K/uL (1.8-7.7); NEUTROPHILS % (AUTO) 58.8 % (40.0-70.0); PLATELET COUNT (AUTO) 396 K/uL (130-430); RED CELL DISTRIBUTION WIDTH 13.3 % (9.0-15.0); WHITE BLOOD COUNT (AUTO) 6.9 K/uL (4.8-10.8)
[2024-02-19 07:22] LABS: ALBUMIN 2.4 g/dL (3.4-4.8); CALCIUM 8.1 mg/dL (8.4-11.0); CREATININE 0.52 mg/dL (0.55-1.30); POTASSIUM 3.9 mmol/L (3.5-5.1); TOTAL BILIRUBIN 0.2 mg/dL (0.0-1.0); TOTAL PROTEIN, SERUM 5.8 g/dL (6.4-8.3)
[2024-02-20] VITALS (10 sets, daily range): BP systolic 96–150; PULSE 65–90; RESP 12–18; TEMP 97.2–98.7; O2SAT 96–100
[2024-02-20 05:30] LABS: ERYTHROCYTE SEDIMENTATION RATE 39 MM/HR (0-15)
[2024-02-20 05:41] LABS: BASOPHILS # (AUTO) 0.1 K/uL (0.0-0.2); EOSINOPHILS # (AUTO) 0.3 K/uL (0.0-0.4); EOSINOPHILS % (AUTO) 4.9 % (0.0-4.0); HEMATOCRIT 30.6 % (36-54); HEMOGLOBIN 9.9 g/dL (14.0-18.0); LYMPHOCYTES # (AUTO) 1.8 K/uL (1.0-5.5); LYMPHOCYTES % (AUTO) 26.4 % (20.5-51.5); MEAN CORPUSCULAR HEMOGLOBIN 30 pg (27-31); MEAN CORPUSCULAR HGB CONC 33 % (32-36); MEAN CORPUSCULAR VOLUME 91 fL (79.0-98.0); MONOCYTES # (AUTO) 0.6 K/uL (0.0-1.0); NEUTROPHILS % (AUTO) 58.7 % (40.0-70.0); PLATELET COUNT (AUTO) 421 K/uL (130-430); RED BLOOD CELL COUNT(AUTO) 3.35 MIL/uL (4.2-6.2); RED CELL DISTRIBUTION WIDTH 13.5 % (9.0-15.0); WHITE BLOOD COUNT (AUTO) 6.9 K/uL (4.8-10.8)
[2024-02-20 06:23] LABS: ALBUMIN 2.4 g/dL (3.4-4.8); CALCIUM 8.7 mg/dL (8.4-11.0); CREATININE 0.64 mg/dL (0.55-1.30); POTASSIUM 4.4 mmol/L (3.5-5.1); TOTAL BILIRUBIN 0.3 mg/dL (0.0-1.0)
[2024-02-21] VITALS: BP_SYST 114; PULSE 62; RESP 16; O2SAT 100
[2024-02-21 08:00] VITALS: BP_SYST 130; PULSE 77; RESP 16; TEMP 98.6; O2SAT 98
[2024-02-21 12:14] VITALS: BP_SYST 122; PULSE 68; RESP 18; TEMP 98.2; O2SAT 98
[2024-02-21 16:00] VITALS: BP_SYST 128; PULSE 74; RESP 16; TEMP 97.9; O2SAT 98
[2024-02-21 20:00] VITALS: BP_SYST 111; PULSE 79; RESP 18; TEMP 98; O2SAT 99
[2024-02-21 20:15] VITALS: O2SAT 98
[2024-02-22] VITALS (8 sets, daily range): BP systolic 99–128; PULSE 60–77; RESP 14–18; TEMP 97.2–97.7; O2SAT 94–99
[2024-02-22 08:04] LABS: BASOPHILS # (AUTO) 0.1 K/uL (0.0-0.2); BASOPHILS % (AUTO) 1.3 % (0.0-2.0); EOSINOPHILS # (AUTO) 0.3 K/uL (0.0-0.4); EOSINOPHILS % (AUTO) 5.5 % (0.0-4.0); HEMATOCRIT 33.6 % (36-54); HEMOGLOBIN 10.9 g/dL (14.0-18.0); LYMPHOCYTES # (AUTO) 1.6 K/uL (1.0-5.5); LYMPHOCYTES % (AUTO) 27.5 % (20.5-51.5); MEAN CORPUSCULAR HEMOGLOBIN 30 pg (27-31); MEAN CORPUSCULAR HGB CONC 33 % (32-36); MEAN CORPUSCULAR VOLUME 92 fL (79.0-98.0); MONOCYTES # (AUTO) 0.4 K/uL (0.0-1.0); MONOCYTES % (AUTO) 7.9 % (1.7-9.3); NEUTROPHILS # (AUTO) 3.3 K/uL (1.8-7.7); NEUTROPHILS % (AUTO) 57.8 % (40.0-70.0); PLATELET COUNT (AUTO) 409 K/uL (130-430); RED BLOOD CELL COUNT(AUTO) 3.64 MIL/uL (4.2-6.2); RED CELL DISTRIBUTION WIDTH 13.8 % (9.0-15.0); WHITE BLOOD COUNT (AUTO) 5.7 K/uL (4.8-10.8)
[2024-02-22 08:15] LABS: ALBUMIN 2.8 g/dL (3.4-4.8); CALCIUM 8.9 mg/dL (8.4-11.0); CREATININE 0.59 mg/dL (0.55-1.30); POTASSIUM 5.1 mmol/L (3.5-5.1); TOTAL BILIRUBIN 0.3 mg/dL (0.0-1.0); TOTAL PROTEIN, SERUM 6.5 g/dL (6.4-8.3)
[2024-02-22 08:31] LABS: HEMOGLOBIN A1C 4.84 % (<5.7)
[2024-02-23 04:30] VITALS: BP_SYST 120; PULSE 77; RESP 18; TEMP 97.7; O2SAT 96
[2024-02-23 08:00] VITALS: O2SAT 97
[2024-02-23 08:03] VITALS: BP_SYST 138; PULSE 65; RESP 16; TEMP 98.7; O2SAT 99
[2024-02-23 16:30] VITALS: BP_SYST 105; PULSE 71; RESP 18; TEMP 98; O2SAT 98
[2024-02-23 19:33] VITALS: O2SAT 98
[2024-02-23 20:01] VITALS: BP_SYST 103; PULSE 71; RESP 18; TEMP 97.5; O2SAT 99
[2024-02-23] MEDS: ceFAZolin SODIUM 2 GM in D5W 100 ML IV SCH (21:11)
[2024-02-24] VITALS (7 sets, daily range): BP systolic 95–106; PULSE 66–84; RESP 14–16; TEMP 97.2–97.9; O2SAT 97–100
[2024-02-24] MEDS ORDERED: ATORVASTATIN 10 MG TABLET PO SCH (09:00)
[2024-02-25 07:18] LABS: BASOPHILS # (AUTO) 0.1 K/uL (0.0-0.2); BASOPHILS % (AUTO) 1.5 % (0.0-2.0); EOSINOPHILS # (AUTO) 0.4 K/uL (0.0-0.4); EOSINOPHILS % (AUTO) 8.2 % (0.0-4.0); HEMATOCRIT 32.9 % (36-54); HEMOGLOBIN 10.7 g/dL (14.0-18.0); LYMPHOCYTES # (AUTO) 1.6 K/uL (1.0-5.5); LYMPHOCYTES % (AUTO) 34.7 % (20.5-51.5); MEAN CORPUSCULAR HEMOGLOBIN 30 pg (27-31); MEAN CORPUSCULAR HGB CONC 33 % (32-36); MEAN CORPUSCULAR VOLUME 91 fL (79.0-98.0); MONOCYTES # (AUTO) 0.5 K/uL (0.0-1.0); MONOCYTES % (AUTO) 10.4 % (1.7-9.3); NEUTROPHILS # (AUTO) 2.1 K/uL (1.8-7.7); NEUTROPHILS % (AUTO) 45.2 % (40.0-70.0); PLATELET COUNT (AUTO) 383 K/uL (130-430); RED BLOOD CELL COUNT(AUTO) 3.63 MIL/uL (4.2-6.2); RED CELL DISTRIBUTION WIDTH 13.3 % (9.0-15.0); WHITE BLOOD COUNT (AUTO) 4.7 K/uL (4.8-10.8)
[2024-02-25 08:08] LABS: CREATININE 0.63 mg/dL (0.55-1.30); POTASSIUM 4.7 mmol/L (3.5-5.1); TOTAL BILIRUBIN 0.3 mg/dL (0.0-1.0); TOTAL PROTEIN, SERUM 6.6 g/dL (6.4-8.3)
[2024-02-25 08:15] VITALS: BP_SYST 93; PULSE 79; RESP 16; TEMP 98; O2SAT 98
[2024-02-25 12:02] VITALS: BP_SYST 87; PULSE 79; RESP 14; TEMP 98; O2SAT 98
[2024-02-25 17:30] VITALS: BP_SYST 96; PULSE 71; RESP 16; TEMP 98.4; O2SAT 98
[2024-02-25 20:00] VITALS: BP_SYST 105; PULSE 77; RESP 16; TEMP 97.3; O2SAT 89
[2024-02-26] VITALS: BP_SYST 120; PULSE 68; RESP 16; TEMP 97.3; O2SAT 100
[2024-02-26 07:45] VITALS: BP_SYST 131; PULSE 79; RESP 15; TEMP 98.2; O2SAT 100
[2024-02-26 09:30] VITALS: O2SAT 100
[2024-02-26] MEDS: HYDROcodone/ACETAMIN 5-325 MG TAB (NORCO/ VICODIN) PO PRN (12:06)
[2024-02-26 13:00] VITALS: BP_SYST 123; PULSE 76; RESP 18; TEMP 97.7; O2SAT 100
[2024-02-26 16:22] VITALS: BP_SYST 100; PULSE 68; RESP 16; TEMP 98.3; O2SAT 100
[2024-02-26 20:00] VITALS: BP_SYST 108; PULSE 71; RESP 16; TEMP 97.4; O2SAT 98
[2024-02-27 01:28] VITALS: BP_SYST 108; PULSE 65; RESP 18; TEMP 97.4; O2SAT 99
[2024-02-27 07:41] LABS: ERYTHROCYTE SEDIMENTATION RATE 48 MM/HR (0-15)
[2024-02-27 07:58] LABS: BASOPHILS # (AUTO) 0.1 K/uL (0.0-0.2); BASOPHILS % (AUTO) 1.8 % (0.0-2.0); EOSINOPHILS # (AUTO) 0.3 K/uL (0.0-0.4); EOSINOPHILS % (AUTO) 7.2 % (0.0-4.0); HEMOGLOBIN 10.8 g/dL (14.0-18.0); LYMPHOCYTES # (AUTO) 1.7 K/uL (1.0-5.5); MEAN CORPUSCULAR HEMOGLOBIN 30 pg (27-31); MEAN CORPUSCULAR HGB CONC 33 % (32-36); MEAN CORPUSCULAR VOLUME 91 fL (79.0-98.0); MONOCYTES # (AUTO) 0.5 K/uL (0.0-1.0); MONOCYTES % (AUTO) 9.9 % (1.7-9.3); NEUTROPHILS # (AUTO) 2.1 K/uL (1.8-7.7); NEUTROPHILS % (AUTO) 44.1 % (40.0-70.0); PLATELET COUNT (AUTO) 350 K/uL (130-430); RED BLOOD CELL COUNT(AUTO) 3.62 MIL/uL (4.2-6.2); RED CELL DISTRIBUTION WIDTH 13.4 % (9.0-15.0); WHITE BLOOD COUNT (AUTO) 4.7 K/uL (4.8-10.8)
[2024-02-27 10:00] VITALS: O2SAT 98
[2024-02-27 13:56] VITALS: BP_SYST 125; PULSE 73; RESP 14; TEMP 98; O2SAT 99
[2024-02-27 16:00] VITALS: BP_SYST 107; PULSE 55; RESP 14; TEMP 98.3; O2SAT 100
[2024-02-27 20:00] VITALS: BP_SYST 135; PULSE 69; RESP 16; TEMP 97.4; O2SAT 100
[2024-02-28] VITALS: BP_SYST 111; PULSE 69; RESP 16; TEMP 97.8; O2SAT 99
[2024-02-28 08:00] VITALS: BP_SYST 142; PULSE 89; RESP 18; TEMP 98; O2SAT 96
[2024-02-28] MEDS ORDERED: ceFAZolin SODIUM 2 GM VIAL ONE (11:55)
[2024-02-28] MEDS ORDERED: BUPIVACAINE /PF 0.25% 30 ML VIAL INJ ONE (11:55)
[2024-02-28] MEDS ORDERED: KETOROLAC TROMETHAMINE 30 MG VIAL ONE (11:55)
[2024-02-28] MEDS ORDERED: MIDAZOLAM HCL 2 MG/2 ML VIAL (VERSED) ONE (11:55)
[2024-02-28] MEDS ORDERED: SEVOFLURANE 15 MIN GAS INH ONE (11:55)
[2024-02-28] MEDS ORDERED: ONDANSETRON HCL 4 MG/2 ML VIAL ONE (11:55)
[2024-02-28] MEDS ORDERED: LR 1,000 ML IV.SOLN IV ONE (11:55)
[2024-02-28] MEDS ORDERED: PROPOFOL 200MG/ 20ML VIAL (DIPRIVAN) IV ONE (11:55)
[2024-02-28] MEDS ORDERED: NS IRRIG SOLN 1000 ML IR ONE (11:55)
[2024-02-28] MEDS ORDERED: fentaNYL CITRATE/PF 100 MCG/2 ML AMP ONE (11:55)
[2024-02-28 12:00] VITALS: BP_SYST 124; PULSE 89; RESP 18; TEMP 98; O2SAT 96
[2024-02-28] MEDS ORDERED: HYDROmorphone 1 MG/ML INJ. CARTRIDGE IVP PRN ×2 (12:30)
[2024-02-28] MEDS ORDERED: METOCLOPRAMIDE HCL 10 MG/2 ML VIAL IVP PRN (12:30)
[2024-02-28] MEDS ORDERED: MEPERIDINE HCL/PF 25 MG/ML DISP.SYRIN IVP PRN (12:30)
[2024-02-28] MEDS: LR 1,000 ML IV SCH (12:30)
[2024-02-28 16:00] VITALS: BP_SYST 141; PULSE 82; RESP 18; TEMP 98.9; O2SAT 99
[2024-02-28 19:00] VITALS: O2SAT 96
[2024-02-28 20:00] VITALS: BP_SYST 132; PULSE 87; RESP 18; TEMP 98.2; O2SAT 96
[2024-02-29 01:21] VITALS: BP_SYST 124; PULSE 84; RESP 17; TEMP 97.7; O2SAT 100
[2024-02-29 08:32] LABS: BASOPHILS # (AUTO) 0.1 K/uL (0.0-0.2); BASOPHILS % (AUTO) 1.1 % (0.0-2.0); EOSINOPHILS # (AUTO) 0.4 K/uL (0.0-0.4); EOSINOPHILS % (AUTO) 5.9 % (0.0-4.0); HEMOGLOBIN 10.2 g/dL (14.0-18.0); LYMPHOCYTES # (AUTO) 1.3 K/uL (1.0-5.5); LYMPHOCYTES % (AUTO) 20.2 % (20.5-51.5); MEAN CORPUSCULAR HEMOGLOBIN 30 pg (27-31); MEAN CORPUSCULAR HGB CONC 33 % (32-36); MEAN CORPUSCULAR VOLUME 91 fL (79.0-98.0); MONOCYTES # (AUTO) 0.6 K/uL (0.0-1.0); MONOCYTES % (AUTO) 8.8 % (1.7-9.3); NEUTROPHILS # (AUTO) 4.1 K/uL (1.8-7.7); PLATELET COUNT (AUTO) 314 K/uL (130-430); RED BLOOD CELL COUNT(AUTO) 3.39 MIL/uL (4.2-6.2); RED CELL DISTRIBUTION WIDTH 13.4 % (9.0-15.0); WHITE BLOOD COUNT (AUTO) 6.4 K/uL (4.8-10.8)
[2024-02-29 08:55] LABS: ALBUMIN 2.7 g/dL (3.4-4.8); CALCIUM 8.4 mg/dL (8.4-11.0); CREATININE 0.87 mg/dL (0.55-1.30); POTASSIUM 4.6 mmol/L (3.5-5.1); TOTAL BILIRUBIN 0.1 mg/dL (0.0-1.0); TOTAL PROTEIN, SERUM 6.3 g/dL (6.4-8.3)
[2024-02-29 10:15] VITALS: O2SAT 98
[2024-02-29] MEDS: metFORMIN HCL 500 MG TABLET PO SCH (10:23)
[2024-02-29 11:03] VITALS: BP_SYST 104; PULSE 86; RESP 16; TEMP 98.2; O2SAT 98
[2024-02-29] MEDS: MULTIVITS,CA,MINERALS/IRON/FA 1 TABLET PO ONE (15:22)
[2024-02-29 16:25] VITALS: BP_SYST 105; PULSE 78; RESP 16; TEMP 98.2; O2SAT 98
[2024-02-29 19:00] VITALS: O2SAT 98
[2024-02-29 20:00] VITALS: BP_SYST 123; PULSE 82; RESP 18; TEMP 97.8; O2SAT 98
[2024-03-01] VITALS (7 sets, daily range): BP systolic 115–140; PULSE 70–80; RESP 14–18; TEMP 97.6–98.4; O2SAT 98–100
[2024-03-01] MEDS: MULTIVITS,CA,MINERALS/IRON/FA 1 TABLET PO SCH (09:20)
[2024-03-01] MEDS: ceFAZolin SODIUM 2 GM in D5W 100 ML IV ONE (14:54)
[2024-03-01] MEDS: CHOLECALCIFEROL (VITAMIN D3) 2,000 UNIT TABLET PO ONE (15:53)
[2024-03-01] MEDS: ceFAZolin SODIUM 2 GM in D5W 100 ML IV SCH (21:44)
[2024-03-02] VITALS (7 sets, daily range): BP systolic 90–112; PULSE 67–78; RESP 16–18; TEMP 96.9–98.1; O2SAT 97–100
[2024-03-02] MEDS: CITALOPRAM HYDROBROMIDE 20 MG TABLET PO SCH (08:40)
[2024-03-02] MEDS: CHOLECALCIFEROL (VITAMIN D3) 2,000 UNIT TABLET PO SCH (08:40)
[2024-03-03] VITALS (8 sets, daily range): BP systolic 92–112; PULSE 69–83; RESP 15–18; TEMP 96.5–98.5; O2SAT 97–100
[2024-03-03 08:07] LABS: BASOPHILS # (AUTO) 0.1 K/uL (0.0-0.2); BASOPHILS % (AUTO) 1.9 % (0.0-2.0); EOSINOPHILS # (AUTO) 0.5 K/uL (0.0-0.4); EOSINOPHILS % (AUTO) 8.2 % (0.0-4.0); HEMATOCRIT 32.9 % (36-54); HEMOGLOBIN 10.8 g/dL (14.0-18.0); LYMPHOCYTES # (AUTO) 2.1 K/uL (1.0-5.5); LYMPHOCYTES % (AUTO) 33.4 % (20.5-51.5); MEAN CORPUSCULAR HEMOGLOBIN 30 pg (27-31); MEAN CORPUSCULAR HGB CONC 33 % (32-36); MEAN CORPUSCULAR VOLUME 92 fL (79.0-98.0); MONOCYTES # (AUTO) 0.5 K/uL (0.0-1.0); MONOCYTES % (AUTO) 8.7 % (1.7-9.3); NEUTROPHILS % (AUTO) 47.8 % (40.0-70.0); PLATELET COUNT (AUTO) 302 K/uL (130-430); RED BLOOD CELL COUNT(AUTO) 3.57 MIL/uL (4.2-6.2); RED CELL DISTRIBUTION WIDTH 13.2 % (9.0-15.0); WHITE BLOOD COUNT (AUTO) 6.3 K/uL (4.8-10.8)
[2024-03-03 08:47] LABS: ALBUMIN 2.7 g/dL (3.4-4.8); CALCIUM 8.5 mg/dL (8.4-11.0); CREATININE 0.66 mg/dL (0.55-1.30); POTASSIUM 4.9 mmol/L (3.5-5.1); TOTAL BILIRUBIN 0.2 mg/dL (0.0-1.0); TOTAL PROTEIN, SERUM 6.3 g/dL (6.4-8.3)
[2024-03-03] MEDS: QUEtiapine FUMARATE 25 MG TABLET PO SCH (20:47)
[2024-03-04] VITALS (7 sets, daily range): BP systolic 98–128; PULSE 71–83; RESP 15–16; TEMP 97.3–98.3; O2SAT 98–100
[2024-03-04 07:48] LABS: BASOPHILS # (AUTO) 0.1 K/uL (0.0-0.2); BASOPHILS % (AUTO) 1.7 % (0.0-2.0); EOSINOPHILS # (AUTO) 0.6 K/uL (0.0-0.4); EOSINOPHILS % (AUTO) 10.6 % (0.0-4.0); HEMATOCRIT 32.7 % (36-54); HEMOGLOBIN 10.9 g/dL (14.0-18.0); LYMPHOCYTES # (AUTO) 2.4 K/uL (1.0-5.5); MEAN CORPUSCULAR HEMOGLOBIN 30 pg (27-31); MEAN CORPUSCULAR HGB CONC 33 % (32-36); MEAN CORPUSCULAR VOLUME 91 fL (79.0-98.0); MONOCYTES # (AUTO) 0.6 K/uL (0.0-1.0); MONOCYTES % (AUTO) 10.5 % (1.7-9.3); NEUTROPHILS # (AUTO) 2.1 K/uL (1.8-7.7); NEUTROPHILS % (AUTO) 36.2 % (40.0-70.0); PLATELET COUNT (AUTO) 309 K/uL (130-430); RED BLOOD CELL COUNT(AUTO) 3.59 MIL/uL (4.2-6.2); RED CELL DISTRIBUTION WIDTH 13.2 % (9.0-15.0); WHITE BLOOD COUNT (AUTO) 5.8 K/uL (4.8-10.8)
[2024-03-04 07:53] LABS: ERYTHROCYTE SEDIMENTATION RATE 17 MM/HR (0-15)
[2024-03-04 08:32] LABS: ALBUMIN 2.9 g/dL (3.4-4.8); CALCIUM 8.9 mg/dL (8.4-11.0); CREATININE 0.74 mg/dL (0.55-1.30); POTASSIUM 4.8 mmol/L (3.5-5.1); TOTAL BILIRUBIN 0.2 mg/dL (0.0-1.0); TOTAL PROTEIN, SERUM 6.7 g/dL (6.4-8.3)
[2024-03-04] MEDS ORDERED: ESCITALOPRAM OXALATE 10 MG TABLET PO SCH (09:00)
[2024-03-04] MEDS: CITALOPRAM HYDROBROMIDE 20 MG TABLET PO SCH (10:10)
[2024-03-04] MEDS: buPROPion HCL 150 MG XL TAB PO SCH (10:10)
[2024-03-04] MEDS: CHOLECALCIFEROL (VITAMIN D3) 5,000 UNIT TABLET PO SCH (10:11)
[2024-03-05] VITALS (8 sets, daily range): BP systolic 80–128; PULSE 68–86; RESP 15–17; TEMP 97.3–98.6; O2SAT 99–100
[2024-03-05] MEDS: NS 500 ML IV ONE (01:38)
[2024-03-05] MEDS: NACL 0.9% 1,000 ML IV SCH (03:48)
[2024-03-05] MEDS ORDERED: ESCITALOPRAM OXALATE 10 MG TABLET PO SCH (09:00)
[2024-03-05] MEDS: FLUoxetine HCL 20 MG CAPSULE (PROzac) PO SCH (09:59)
[2024-03-07] MEDS ORDERED: QUEtiapine FUMARATE 25 MG TABLET PO SCH (13:30)
== END 2024-03-06 23:00 | disposition home health service (06) | DRG 907 ==
LOC: SED 14:11 → SIC 16:34 → STU 02-20 16:34 → SMU 02-24 02:08 → UNDODISIN 03-05 23:00
PROVIDERS: ADMIT Internal Medicine; ATTEND Internal Medicine
PROC: 0SBF4ZZ Excision of Right Ankle Joint, Percutaneous Endoscopic Approach (ICD-10-PCS; principal; 2024-02-28 12:00)
DX: T50.912A Poisoning by multiple unspecified drugs, medicaments and biological substances, intentional self-harm, initial encounter (principal); G92.9 Unspecified toxic encephalopathy; R57.0 Cardiogenic shock; N17.0 Acute kidney failure with tubular necrosis; R65.21 Severe sepsis with septic shock; E44.0 Moderate protein-calorie malnutrition; L03.115 Cellulitis of right lower limb; F33.2 Major depressive disorder, recurrent severe without psychotic features; M86.8X6 Other osteomyelitis, lower leg; E87.1 Hypo-osmolality and hyponatremia; I10 Essential (primary) hypertension; R00.1 Bradycardia, unspecified; D64.9 Anemia, unspecified; E78.00 Pure hypercholesterolemia, unspecified; E11.69 Type 2 diabetes mellitus with other specified complication; M24.561 Contracture, right knee; D63.8 Anemia in other chronic diseases classified elsewhere; Z79.899 Other long term (current) drug therapy; Z79.4 Long term (current) use of insulin; Z68.22 Body mass index [BMI] 22.0-22.9, adult; Y92.89 Other specified places as the place of occurrence of the external cause
CPT/HCPCS: 36415; 71045; 73560; 73721; 80048; 80053; 80076; 80307; 81000; 81001; 81015; 82009; 82948; 83037; 83605; 83735; 83880; 84100; 84484; 85025; 85610; 85651; 85730; 86886; 86900; 86901; 87040; 87070; 87075; 87081; 93005; 93306; 97110-GP; 97116-GP; 97530-GP; 99291; G0378; G0480; G0481; G0482; J0360; J0461; J0612; J1265; J1610; J1815; J1885; J2250; J2310; J2405; J2543; J2704; J3010; J3490; J7030; J7040; J7050; J7060; J7120; L1830